=== PATIENT | male | born 1950 | race Asian ===

== ENCOUNTER 2018-09-05 08:18 | Emergency (ER) | payer OTHER ==
[~2018-09-05] VITALS: Ht 170.2 cm; Wt 65.8 kg
[2018-09-05 08:57] LABS: Basophils # (auto) 0.1 uL; Basophils % (auto) 0.5 % (0.0-2.0); Eosinophils # (auto) 0 uL; Eosinophils % (auto) 0.3 % (0.0-7.0); Hematocrit 50.3 % (41.0-53.0); Hemoglobin 16.7 g/dL (13.5-17.5); Lymphocytes # (auto) 1.8 uL; Lymphocytes % (auto) 19.3 % (10.0-50.0); Mean Corpuscular Hemoglobin 31.4 pg (28.0-32.0); Mean Corpuscular Hgb Conc. 33.1 g/dL (32.0-36.0); Mean Corpuscular Volume 94.7 fL (80.0-100.0); Monocytes # (auto) 0.4 uL; Monocytes % (auto) 4.6 % (0.0-12.0); Neutrophils # (auto) 7.1 uL; Neutrophils % (auto) 75.3 % (37.0-80.0); Nucleated Red Blood Cells % 0.1 %; Platelet Count (auto) 213 10^3/uL (140-450); Red Blood Cells 5.31 10^6/uL (4.5-5.90); Red Cell Distribution Width 13.1 % (11.8-14.3); White Blood Cell 9.5 10^3/uL (4.4-10.8)
[2018-09-05 09:13] LABS: Potassium 4.1 mmol/L (3.5-5.1)
[2018-09-05 09:23] LABS: BUN/Creatinine Ratio 9.9; Bilirubin, Total 0.4 mg/dL (0.2-1.0); Calcium 8.7 mg/dL (8.5-10.1); Total Protein 7.5 g/dL (6.4-8.2)
[2018-09-05 12:39] LABS: Urine Bacteria NONE SEEN /hpf (None Seen); Urine Blood Negative /uL (Negative); Urine Specific Gravity 1.004 (1.001-1.035); Urine WBC <1 /hpf (0 - 3)
[2018-09-05 22:32] VITALS: BP 133/66
== END 2018-09-06 02:44 | disposition home or self-care (01) ==
LOC: ER 08:21
DX: R07.89 Other chest pain (principal); G44.209 Tension-type headache, unspecified, not intractable; E11.65 Type 2 diabetes mellitus with hyperglycemia; I48.0 Paroxysmal atrial fibrillation; E78.5 Hyperlipidemia, unspecified; Z88.1 Allergy status to other antibiotic agents; Z88.8 Allergy status to other drugs, medicaments and biological substances
CPT/HCPCS: 36415; 70450; 71045; 80053; 81001; 84443; 84484; 85025; 85379; 93005

== ENCOUNTER 2018-12-28 07:45 | Day surgery (SDC) | payer OTHER ==
[~2018-12-28] VITALS: Ht 170.2 cm; Wt 67.1 kg
[~2018-12-28 07:45] MED LIST: APIX5TAB PO; CHOL100029 PO; GABA100C9 PO; INSUINJ37 SC; LISI10TA6 PO; METF-372 PO; METO-169 PO; OMEP20TA PO; SIMV-8 PO
[2018-12-28] MEDS ORDERED: IODIXANOL 320MG/ML 100ML BTL IV ONE ×3 (08:52→10:03)
[2018-12-28] MEDS ORDERED: fentaNYL CITRATE 100 MCG/2 ML VL ONE (09:40)
[2018-12-28] MEDS ORDERED: SODIUM CHL 0.9% 0 ML ONE (09:40)
[2018-12-28] MEDS ORDERED: ANGIOMAX 250 MG VIAL IV ONE (09:40)
[2018-12-28] MEDS ORDERED: MIDAZOLAM HCL 1MG/1ML-2 ML VIAL ONE (09:40)
[2018-12-28] MEDS ORDERED: VERAPAMIL 2.5MG/ML INJ 2ML VIAL IV ONE (10:10)
[2018-12-28] MEDS ORDERED: HEPARIN SODIUM (PORCINE) 5000 UNITS/ML 1ML VIAL ONE (10:24)
[2018-12-28] MEDS ORDERED: hydrALAZINE HCL 20 MG/ML VL IV ONE (11:15)
== END 2018-12-28 13:24 | disposition home or self-care (01) ==
LOC: EDUNIT# → CATH 07:45
PROVIDERS: ATTEND Internal Medicine
DX: I25.10 Atherosclerotic heart disease of native coronary artery without angina pectoris (principal); I10 Essential (primary) hypertension; I48.91 Unspecified atrial fibrillation; E11.9 Type 2 diabetes mellitus without complications; E78.5 Hyperlipidemia, unspecified; N40.0 Benign prostatic hyperplasia without lower urinary tract symptoms; Z87.891 Personal history of nicotine dependence; Z79.899 Other long term (current) drug therapy; Z88.8 Allergy status to other drugs, medicaments and biological substances; Z88.1 Allergy status to other antibiotic agents; Z79.84 Long term (current) use of oral hypoglycemic drugs
CPT/HCPCS: 93454; C1769; C1894; J0360; J1644; J2250; J3010; Q9967; 99152

== ENCOUNTER 2019-02-01 10:43 | Inpatient (IN) | payer OTHER ==
[~2019-02-01] VITALS: Ht 170.2 cm; Wt 63.0 kg
--- NOTE | 2019-02-01 13:14 | NUR ---
DIRECT ADMIT FROM DOCTOR FERN. ORDERS RECEIVED FROM DR. SHIRLEY, WILL PLACE AND CARRY OUT. PATIENT PLACED ON TELE BOX 56 RUNNING A-FIB IN THE 100'S. PATIENT DENIES CHEST PAIN, AT BEDSIDE. WILL CONTINUE TO MONITOR.
[2019-02-01] MEDS ORDERED: NITROGLYCERIN 0.4 MG SL TAB SL PRN (13:30)
[2019-02-01] MEDS ORDERED: MORPHINE SULF INJ 2 MG/ML SYRINGE 1ML IV PRN (13:30)
[2019-02-01] MEDS ORDERED: ACETAMINOPHEN 325 MG TAB PO PRN (13:30)
[2019-02-01] MEDS ORDERED: hydrALAZINE HCL 20 MG/ML VL IV PRN (13:30)
[2019-02-01] MEDS ORDERED: ONDANSETRON HCL 4 MG/2 ML VIAL IV PRN (13:30)
[2019-02-01] MEDS ORDERED: HYDROcodone-ACET 5/325MG TAB PO PRN (14:00)
--- NOTE | 2019-02-01 14:11 | NUR ---
IV insertion IV access obtained, via clean sterile technique by inserting 20 gauge catheter at left AC after 1 attempt. IV secured properly. No trauma to site. Patient tolerated well.
[2019-02-01] MEDS ORDERED: DEXTROSE (50%) 50ML SYRG IV PRN (15:15)
[2019-02-01 15:22] LABS: Basophils # (auto) 0.1 uL; Eosinophils # (auto) 0 uL; Eosinophils % (auto) 0.6 % (0.0-7.0); Hematocrit 47.8 % (41.0-53.0); Hemoglobin 15.9 g/dL (13.5-17.5); Lymphocytes # (auto) 1.3 uL; Lymphocytes % (auto) 24.9 % (10.0-50.0); Mean Corpuscular Hemoglobin 31.2 pg (28.0-32.0); Mean Corpuscular Hgb Conc. 33.3 g/dL (32.0-36.0); Mean Corpuscular Volume 93.6 fL (80.0-100.0); Monocytes # (auto) 0.5 uL; Monocytes % (auto) 8.5 % (0.0-12.0); Neutrophils # (auto) 3.5 uL; Platelet Count (auto) 198 10^3/uL (140-450); Red Blood Cells 5.11 10^6/uL (4.5-5.90); White Blood Cell 5.3 10^3/uL (4.4-10.8)
[2019-02-01 15:29] LABS: Albumin 4.1 g/dL (3.4-5.0); BUN/Creatinine Ratio 12.1; Calcium 9.2 mg/dL (8.5-10.1); Potassium 4.2 mmol/L (3.5-5.1)
[2019-02-01 15:34] LABS: Bilirubin, Total 0.5 mg/dL (0.2-1.0); INR 0.98 (0.9-1.15); Partial Thromboplastin Time 26.2 sec (23.64-32.05); Total Protein 7.8 g/dL (6.4-8.2)
[2019-02-01] MEDS ORDERED: SENN-46 PO (15:51)
[2019-02-01] MEDS ORDERED: CETI10TA80 PO (15:51)
[2019-02-01] MEDS: InsuLIN REG 1unit/0.01ml Soln (100units/ml) SC SCH ×2 (17:00→22:23)
[2019-02-01] MEDS: ACCU-CHEK COMFORT CURVE STRIP VI SCH ×2 (18:14→22:23)
--- NOTE | 2019-02-01 19:30 | NUR ---
Opening Shift Note Assumed care of patient, awake and alert. No S/S of distress/SOB or pain. Insructed on POC and to callfor assist PRN, will continue to monitor for changes Q1hr and PRN. Patient sitting in chair, call light within reach.
--- NOTE | 2019-02-01 20:30 | NUR ---
ICU TRANSFER Patient taken down to ICU room 108 in wheelchair and all personal belongings. No distress during transfer. Care endorsed to Raven AMAYA.
--- NOTE | 2019-02-01 20:30 | NUR ---
Pt being admitted to ICU FROM TELE FLOOR [place] [facility] admitted to ICU via Wheel Chair. on Tele monitor, on room air. Patient ambulated to bed, connected to ICU monitoring, [facility] Patient oriented to Raven Munoz, primary RN, unit, room, bed, and unit policies regarding patient care and visiting hours. All questions and concerns addressed, patient verbalized understanding. NOTE: PT TO UNIT. A&O X 4. DENIES PAIN. PT AMBULATED FROM WHEEL CHAIR TO BED WITH NO DIFFICULTY. BED IN LOWEST LOCKED POSITION. SIDE RAILS UP X 2. CALL DUARTE AND URINAL WITHIN REACH. PT EDUCATED TO CALL FOR ASSIST PRIOR TO GETTING OOB. PT VERBALIZES UNDERSTANDING.
[2019-02-01 20:31] VITALS: BP 138/83
[2019-02-01 21:00] VITALS: BP 124/78
--- NOTE | 2019-02-01 21:15 | NUR ---
CONSENTS PT STATES HE SPOKE WITH DR ORO AND DR FONSECA TODAY REGARDING CABG SCHEDULED FOR AM. PT OFFERED TO WATCH VIDEO EDUCATION REGARDING PLANNED PROCEDURE AND AT HOME CARE AFTER DISCHARGE. PT STATES "I HAVE SEEN THE VIDEOS". ALL CONSENTS SIGNED AND PLACED IN CHART.
[2019-02-01] MEDS ORDERED: ceFAZolin 1GM 2 GM in D5W 5% 100 ML IV ONE (21:30)
[2019-02-01] MEDS ORDERED: VANCOMYCIN 1GM/250ML 250 ML IV ONE (21:30)
--- NOTE | 2019-02-01 21:45 | NUR ---
PT CALLED UNIT PT CALLED UNIT WITH QUESTIONS REGARDING VISITING IN AM PRIOR TO SURGERY. AFTER PASSWORD FOR PHONE GIVEN. UPDATE PROVIDED. PT'S VERBALIZES UNDERSTANDING.
[2019-02-01] MEDS ORDERED: ASCORBIC ACID 500 MG TAB PO ONE (22:00)
[2019-02-01] MEDS ORDERED: ATORVASTATIN 20 MG TAB PO SCH (22:00)
[2019-02-01] MEDS ORDERED: MUPIROCIN 2% OINT 15gm or 22gm ONE (22:04)
[2019-02-01] MEDS: MUPIROCIN 2% OINT 15gm or 22gm TOP SCH (22:14)
[2019-02-01 23:44] VITALS: BP 137/88
[2019-02-02] VITALS (48 sets, daily range): BP systolic 30–160; BP diastolic 14–89
[2019-02-02] MEDS ORDERED: CHLORHEXIDINE 4% TOPICAL soln 118ml TOP ONE (02:00)
--- NOTE | 2019-02-02 02:00 | NUR ---
PRE OP PREP PT SHAVED. PT BATHED SELF WITH WARM SOAPY WATER. ASSISTED OOB TO CHAIR. PT THEN BATHED WITH HIBI-CLEANSE CHLORHEXIDINE SOLUTION. AIR DRY. PT PLACED IN CLEAN GOWN. NEW BEDDING PLACED IN BED. PT ASSISTED TO BED. CALL DUARTE IN REACH.
[2019-02-02 04:25] LABS: Basophils # (auto) 0 uL; Basophils % (auto) 0.6 % (0.0-2.0); Eosinophils # (auto) 0.1 uL; Eosinophils % (auto) 1.2 % (0.0-7.0); Lymphocytes # (auto) 1.4 uL; Lymphocytes % (auto) 24.4 % (10.0-50.0); Mean Corpuscular Hemoglobin 31.1 pg (28.0-32.0); Mean Corpuscular Hgb Conc. 33.3 g/dL (32.0-36.0); Mean Corpuscular Volume 93.5 fL (80.0-100.0); Monocytes # (auto) 0.7 uL; Monocytes % (auto) 11.6 % (0.0-12.0); Neutrophils # (auto) 3.5 uL; Neutrophils % (auto) 62.2 % (37.0-80.0); Nucleated Red Blood Cells % 0.1 %; Platelet Count (auto) 190 10^3/uL (140-450); Red Blood Cells 5.14 10^6/uL (4.5-5.90); Red Cell Distribution Width 12.9 % (11.8-14.3); White Blood Cell 5.7 10^3/uL (4.4-10.8)
[2019-02-02 04:38] LABS: INR 1.03 (0.9-1.15); Partial Thromboplastin Time 26.5 sec (23.64-32.05)
[2019-02-02 04:50] LABS: BUN/Creatinine Ratio 14.7; Calcium 8.8 mg/dL (8.5-10.1); Magnesium 2.1 mg/dL (1.6-2.6)
--- NOTE | 2019-02-02 05:30 | NUR ---
FAMILY TO BEDSIDE PT AND SON TO BEDSIDE TO VISIT PRIOR TO SURGERY THIS AM.
[2019-02-02] MEDS ORDERED: PAPAVERINE HCL 60 MG/2 ML 2ML VIAL ONE (06:07)
[2019-02-02] MEDS ORDERED: HEPARIN 1,000 UNITS/ml 1ML VIAL ONE (06:07)
[2019-02-02] MEDS ORDERED: NEOMYCIN-BACITRACIN-POLYM 15GM TOP OINT TOP ONE (06:07)
[2019-02-02] MEDS ORDERED: BACITRACIN INJ 50000 UNIT VIAL ONE ×3 (06:08→14:29)
[2019-02-02] MEDS: MUPIROCIN 2% OINT 15gm or 22gm TOP SCH (06:15)
[2019-02-02] MEDS ORDERED: NITROGLYCERIN 50MG/250ML 250 ML IV ONE (06:25)
--- NOTE | 2019-02-02 06:25 | NUR ---
PT OFF UNIT TO O.R. CHART AND CONSENTS SENT WITH PT.
[2019-02-02] MEDS: ACCU-CHEK COMFORT CURVE STRIP VI SCH ×10 (06:48→23:00)
[2019-02-02] MEDS: InsuLIN REG 1unit/0.01ml Soln (100units/ml) SC SCH ×2 (06:48→11:30)
[2019-02-02] MEDS ORDERED: CHLORHEXIDINE 0.12% ORAL rinse 473ML MT ONE (07:00)
[2019-02-02] MEDS ORDERED: MIDAZOLAM HCL 1MG/1ML-2 ML VIAL ONE ×2 (07:05→11:05)
[2019-02-02] MEDS ORDERED: ROCURONIUM 10MG/ML 10ML VIAL IV ONE (07:05)
[2019-02-02] MEDS ORDERED: PROPOFOL 10 MG/ML 20 ML IV ONE (07:05)
[2019-02-02] MEDS ORDERED: NOREPINEPHRINE 8 MG/250ML KIT 250 ML IV ONE (08:00)
[2019-02-02] MEDS ORDERED: HEPARIN 30000 UNITS in SODIUM CHLORIDE 0.9% 1000 ML IV ONE (08:00)
[2019-02-02] MEDS ORDERED: InsuLIN R (HUMAN) 100 UNITS in SODIUM CHL 0.9% 99 ML IV ONE (08:00)
[2019-02-02] MEDS ORDERED: ACCU-CHEK COMFORT CURVE STRIP VI ONE (08:00)
[2019-02-02] MEDS ORDERED: PHENYLEPHRINE INJ 20 MG in SODIUM CHL 0.9% 250 ML IV ONE (08:00)
[2019-02-02] MEDS ORDERED: AMINOCAPROIC ACID 10 GM in SODIUM CHL 0.9% 100 ML IV ONE (08:00)
[2019-02-02] MEDS ORDERED: EPINEPHrine HCL 4 MG in D5W 5% 250 ML IV ONE (08:00)
[2019-02-02] MEDS ORDERED: AMINOCAPROIC ACID 5 GM in SODIUM CHL 0.9% 250 ML IV ONE (08:00)
[2019-02-02] MEDS ORDERED: fentaNYL CITRATE 100 MCG/2 ML VL ONE ×3 (08:10→11:05)
[2019-02-02] MEDS ORDERED: MANNITOL 20 % (20GM/100ML) 500 ML IV ONE (08:13)
[2019-02-02] MEDS ORDERED: ALBUMIN 25% 400 ML IV ONE (08:13)
[2019-02-02] MEDS ORDERED: MANNITOL FTV 25% 12.5 GM/50 ML 100 ML IV ONE (08:13)
[2019-02-02] MEDS ORDERED: PLASMA-LYTE A pH7.4 6,000 ML INJ ONE (08:14)
[2019-02-02] MEDS ORDERED: DILTIAZEM 125mg/125ml BAG KIT 125 ML IV STA (08:15)
[2019-02-02] MEDS ORDERED: ASPirin 81 mg TAB PO SCH (10:00)
[2019-02-02] MEDS ORDERED: ADENOSINE 6 MG/2 ML INJ IV ONE ×2 (11:28→19:23)
[2019-02-02] MEDS ORDERED: PROPOFOL 100 ML IV ONE (13:00)
[2019-02-02] MEDS ORDERED: AMIODARONE HCL 150 MG in D5W 5% 100 ML IV ONE ×2 (13:45→15:30)
[2019-02-02] MEDS ORDERED: PROTAMINE SULFATE 10 MG/ML 5ML VIAL IV ONE ×2 (14:10)
[2019-02-02 14:30] LABS: Basophils # (auto) 0.1 uL; Basophils % (auto) 0.5 % (0.0-2.0); Eosinophils # (auto) 0 uL; Hematocrit 27.3 % (41.0-53.0); Hemoglobin 9.1 g/dL (13.5-17.5); Lymphocytes # (auto) 1.3 uL; Lymphocytes % (auto) 8.6 % (10.0-50.0); Mean Corpuscular Hemoglobin 31.2 pg (28.0-32.0); Mean Corpuscular Hgb Conc. 33.5 g/dL (32.0-36.0); Mean Corpuscular Volume 93.1 fL (80.0-100.0); Monocytes # (auto) 0.6 uL; Monocytes % (auto) 3.8 % (0.0-12.0); Neutrophils # (auto) 13.7 uL; Neutrophils % (auto) 87.1 % (37.0-80.0); Platelet Count (auto) 102 10^3/uL (140-450); Red Blood Cells 2.93 10^6/uL (4.5-5.90); Red Cell Distribution Width 12.8 % (11.8-14.3); White Blood Cell 15.8 10^3/uL (4.4-10.8)
[2019-02-02 14:47] LABS: INR 1.53 (0.9-1.15); Partial Thromboplastin Time 35.7 sec (23.64-32.05)
[2019-02-02] MEDS: PHENYLEPHRINE IV 250 ML IV SCH (15:13)
[2019-02-02] MEDS: INSULIN DRIP 100 UNIT/100ML 100 ML IV SCH ×2 (15:13→19:41)
[2019-02-02] MEDS: NITROGLYCERIN 50MG/250ML 250 ML IV SCH (15:13)
[2019-02-02] MEDS: PROPOFOL 100 ML IV SCH ×2 (15:13→20:10)
--- NOTE | 2019-02-02 15:13 | NUR ---
INITIAL ASSESSMENT Pt. arrived from [facility] accompanied by cardiothoracic team on hemodynamic monitoring. Report received from anesthesiologist and Dr. Church. Surgery: Cabg x 4. Endoscopic Vein [place] to right Leg. Lines: PA catheter around 52cm at the Hub of the Dual lumen Cordis to the right IJ. Gabriela to left radial artery. Pacer wires:V-wires connected to pacemaker. Pacemaker check performed, placed on standby. Chest Tube: mediastinal, left/right pleural Aaron: 16 F clear yellow harrison urine ET tube: 8.0, 24cm at lip line Gtts: Diprivan, Neosyneprhine, insulin, NS, Amiodarone Hemodynamics: CO/CI: 4.0/2.3 HR: 82 Assisted BP: 155/76 MAP: 102 CVP: 13 PAP: 40/22 SVR: 1763 SVO2: 72% SPO2:100 % Immediate Post- Op recovery Pt arrived to ICU hemodynamically stable/unstable. Patient connected to ventilator by RT. Ventilator connected to red outlet, ambu bag at bedside, alarms in place. Patient connected to bedside monitor, swan-stephanie connected and all lines zero'd and calibrate. Physical assessment performed. ABG and mix venous labs obtained and given to RT. MD at bedside.
[2019-02-02] MEDS: NICARDIPINE 25MG/250ML BAG KIT 250 ML IV SCH ×2 (15:22→20:22)
[2019-02-02] MEDS: NOREPINEPHRINE 8 MG/250ML KIT 250 ML IV SCH (15:22)
[2019-02-02] MEDS: MILRINONE 20MG/100ML 100 ML IV SCH ×2 (15:22→20:13)
[2019-02-02] MEDS ORDERED: MAGNESIUM SULFATE 1GM/100ML 100 ML IV PRN (15:30)
[2019-02-02] MEDS ORDERED: ZOLPIDEM TARTRATE 5 MG TAB PO PRN (15:30)
[2019-02-02] MEDS ORDERED: DEXTROSE (50%) 50ML SYRG IV PRN (15:30)
[2019-02-02] MEDS ORDERED: VANCOMYCIN 1GM/250ML 250 ML IV SCH (15:30)
[2019-02-02] MEDS ORDERED: NITROGLYCERIN 0.4 MG SL TAB SL PRN (15:30)
[2019-02-02] MEDS ORDERED: SODIUM BICARBONATE 8.4% INJ 50ML SYRINGE IV PRN (15:30)
[2019-02-02] MEDS: ALBUMIN 5% 250 ML IV SCH ×2 (15:30→20:20)
[2019-02-02] MEDS ORDERED: ceFAZolin 1GM 2 GM in D5W 5% 100 ML IV SCH (15:30)
[2019-02-02] MEDS ORDERED: MORPHINE SULF INJ 2 MG/ML SYRINGE 1ML IV PRN (15:30)
[2019-02-02] MEDS ORDERED: AMIODARONE HCL 900 MG in DEXTROSE 500 ML IV SCH ×2 (15:32→19:51)
--- NOTE | 2019-02-02 16:00 | NUR ---
LABS Labs drawn from arterial line and sent to lab.
[2019-02-02 16:10] LABS: Basophils # (auto) 0 uL; Basophils % (auto) 0.1 % (0.0-2.0); Eosinophils # (auto) 0 uL; Hematocrit 30.7 % (41.0-53.0); Hemoglobin 10.3 g/dL (13.5-17.5); Lymphocytes # (auto) 1.6 uL; Lymphocytes % (auto) 7.6 % (10.0-50.0); Mean Corpuscular Hemoglobin 31.3 pg (28.0-32.0); Mean Corpuscular Hgb Conc. 33.5 g/dL (32.0-36.0); Mean Corpuscular Volume 93.4 fL (80.0-100.0); Monocytes # (auto) 2.4 uL; Neutrophils # (auto) 17.7 uL; Neutrophils % (auto) 81.3 % (37.0-80.0); Nucleated Red Blood Cells % 0.1 %; Platelet Count (auto) 122 10^3/uL (140-450); Red Blood Cells 3.29 10^6/uL (4.5-5.90); Red Cell Distribution Width 12.9 % (11.8-14.3); White Blood Cell 21.8 10^3/uL (4.4-10.8)
--- NOTE | 2019-02-02 16:10 | NUR ---
CARES Partial linen change performed. Skin intact. Patient tolerated activity well. No distress or pain noted at this time. Will continue to monitor.
[2019-02-02 16:20] LABS: Albumin 4.1 g/dL (3.4-5.0); Calcium 8.5 mg/dL (8.5-10.1); Potassium 3.7 mmol/L (3.5-5.1)
--- NOTE | 2019-02-02 16:30 | NUR ---
FAMILY Patient at bedside. Updated on patient status. All questions and concerns addressed. stated she will be back tomorrow.
[2019-02-02 16:36] LABS: INR 1.21 (0.9-1.15); Partial Thromboplastin Time 28.4 sec (23.64-32.05)
[2019-02-02] MEDS: SODIUM CHLORIDE 0.9% 500 ML IV SCH (16:49)
--- NOTE | 2019-02-02 17:20 | NUR ---
COOLING MEASURES Patient core temperature 99.7, ice packs applied and room temperature decreased. Will continue to monitor.
--- NOTE | 2019-02-02 17:44 | NUR ---
AT BEDSIDE at bedside assessing patient. Orders received for Vitamin K.
[2019-02-02] MEDS ORDERED: PHYTONADIONE (VIT K)10 MG/ML 1ML VIAL IV ONE (17:45)
[2019-02-02] MEDS ORDERED: PHYTONADIONE (VIT K)10 MG/ML 1ML VIAL SUBCUT ONE (17:45)
[2019-02-02 17:48] LABS: Bilirubin, Total 1.2 mg/dL (0.2-1.0); Total Protein 5.9 g/dL (6.4-8.2)
[2019-02-02] MEDS: MORPHINE SULFATE 4 MG/ML SYR/VIAL IV PRN (18:01)
[2019-02-02] MEDS: POTASSIUM CHL 20MEQ/100ML 100 ML IV PRN (18:32)
--- NOTE | 2019-02-02 18:32 | NUR ---
ELECTROLYTE REPLACEMENT Patient Potassium 3.7, per protocol replacement required. Replacement started.
[2019-02-02] MEDS ORDERED: TRANEXAMIC ACID 1,000 mg/10ml INJ VIAL IV ONE (19:23)
[2019-02-02] MEDS ORDERED: POTASSIUM CHL 2MEQ/ML 20ML IV ONE (19:23)
[2019-02-02] MEDS ORDERED: PHENYLEPHRINE HCL 10 MG/ML VL IV ONE (19:23)
[2019-02-02] MEDS ORDERED: LIDOCAINE HCL 100 MG/5ML (2%) SYRG INJ IV ONE (19:23)
[2019-02-02] MEDS ORDERED: MAGNESIUM SULF 50% 40 MEQ/10 ML VL IV ONE (19:23)
[2019-02-02] MEDS ORDERED: CALCIUM GLUC 4.65 MEQ/10ML IV ONE (19:23)
[2019-02-02] MEDS ORDERED: SODIUM BICARBONATE 8.4 % INJ 50ML VIAL IV ONE (19:23)
[2019-02-02] MEDS ORDERED: CALCIUM CHL(10%) 100MG/ML 10ML VIAL IV ONE (19:23)
--- NOTE | 2019-02-02 19:27 | NUR ---
REPORT Report given to Raven AMAYA, care endorsed.
--- NOTE | 2019-02-02 20:00 | NUR ---
OPEN ASSUMED CARE OF MALE PT S/P CABG TODAY. PT ORALLY INTUBATED. SEDATED ON DIPRIVAN 35 MCG/KG/MIN. PT WITHDRAWS FROM PAIN. OTHERWISE NON RESPONSIVE. SR ON DENTURE MODEL MAKER WITH ST ELEVATION OBSERVED. PT ON TRIDIL GTT 20 MCG/MIN, AND AMIODARONE GTT AT 1 MG/MIN. R. IJ SWAN ANGELIQUE CATHETER IN PLACE APPROXIMATELY 52 CM AT THE HUB OF THE DUAL LUMEN CORDIS. L. RADIAL YOSVANY IN PLACE. GOOD WAVEFORMS OBSERVED. 20 IV TO L. AC WITH INSULIN GTT RUNNING. ALL DRESSINGS CDI. STERNOTOMY INCISION TO ANT. CHEST WITH CDI AQUACEL DRESSING. V EPICARDIAL WIRES IN PLACE CONNECTED TO EXTERNAL GENERATOR SET AT RATE OF 60. PT INTRINSIC RATE IS ABOVE PACEMAKER SET RATE. PACEMAKER SENSING PROPERLY. OGT IN PLACE CLAMPED. PLACEMENT VERIFIED. CHEST TUBES X 3. L&R PLEURAL, AND MEDIASTINAL CHEST TUBES DRAINING SANGUINEOUS DRAINAGE INTO ATRIUM COLLECTION UNITS X 2 SECURED TO FLOOR. BOTH SET AT 20 CM SUCTION. MEDIASTINAL CHEST TUBE WITH MILD GRADE 1 ARE LEAK. NO CREPITUS PALPATED. FIGUEREDO TO GRAVITY DRAINING PALE YELLOW URINE WITH PINK TINGE. NO DAVI BLEEDING AND NO CLOTS. ENDOSCOPIC INCISIONS TO R. MEDIAL KNEE AND R. LAT. ANKLE WITH CDI DRESSING. KESHAWN WRAP IN PLACE. BED IN LOWEST LOCKED POSITION. SIDE RAILS UP X 2. NO INDICATION OF PAIN OBSERVED. WILL CONTINUE TO CLOSELY MONITOR.
--- NOTE | 2019-02-02 20:10 | NUR ---
LOW C.I. PT WITH CONSISTENTLY LOW C.I. RANGING FROM 1.5 TO 1.7. CVP 8 BP 125/64. ALBUMIN 5% IS INFUSING PER ORDER. NTG 25 MCG/MIN. PAS/PAD 37/16 2014. NO INDICATIONS OF PAIN. PT RELAXED ON MECH VENT. MILRINONE GTT STARTED PER PROTOCOL.
[2019-02-02] MEDS: AMIODARONE HCL 900 MG in DEXTROSE 500 ML IV SCH (21:00)
[2019-02-02 21:10] LABS: Basophils # (auto) 0 uL; Basophils % (auto) 0.1 % (0.0-2.0); Eosinophils # (auto) 0 uL; Hematocrit 32.4 % (41.0-53.0); Lymphocytes # (auto) 0.4 uL; Lymphocytes % (auto) 2.6 % (10.0-50.0); Mean Corpuscular Hemoglobin 31.7 pg (28.0-32.0); Mean Corpuscular Volume 93.2 fL (80.0-100.0); Monocytes % (auto) 6.6 % (0.0-12.0); Neutrophils # (auto) 13.8 uL; Neutrophils % (auto) 90.7 % (37.0-80.0); Platelet Count (auto) 104 10^3/uL (140-450); Red Blood Cells 3.48 10^6/uL (4.5-5.90); Red Cell Distribution Width 13.3 % (11.8-14.3); White Blood Cell 15.2 10^3/uL (4.4-10.8)
[2019-02-02 21:27] LABS: BUN/Creatinine Ratio 7.6; Calcium 8.1 mg/dL (8.5-10.1); Magnesium 3.1 mg/dL (1.6-2.6); Potassium 4.2 mmol/L (3.5-5.1)
[2019-02-02 21:30] LABS: Phosphorus 0.3 mg/dL (2.5-4.90)
[2019-02-02 21:31] LABS: Phosphorus 0.3 mg/dL (2.5-4.90)
--- NOTE | 2019-02-02 21:34 | NUR ---
REASSESS C.I. C.I. NOW 2.1. MOST RECENT U.O. 130 FOR PAST HOUR. WILL CONTINUE TO MONITOR.
[2019-02-02] MEDS ORDERED: POTASSIUM PHOSPHATE 44 MEQ in D5W 5% 250 ML IV ONE (21:45)
[2019-02-02] MEDS: CHLORHEXIDINE 0.12% ORAL rinse 473ML MT SCH (22:00)
[2019-02-02] MEDS ORDERED: SODIUM PHOSPHATES 40 MEQ in D5W 5% 250 ML IV ONE (22:00)
--- NOTE | 2019-02-02 22:30 | NUR ---
PAIN PT GRIMACING. ASSUMED TO BE HAVING PAIN. PT MEDICATED WITH MORPHINE SIVP PER ORDER. SEE EMAR.
[2019-02-02] MEDS: SOD CHL 0.45% IV SCH (23:30)
[2019-02-03] VITALS (101 sets, daily range): BP systolic 25–164; BP diastolic 6–66
[2019-02-03] MEDS: SOD CHL 0.45% IV SCH ×14 (00:30→21:30)
[2019-02-03] MEDS: ACCU-CHEK COMFORT CURVE STRIP VI SCH ×17 (01:00→20:04)
[2019-02-03] MEDS: ALBUMIN 5% 250 ML IV SCH ×4 (01:13→16:30)
[2019-02-03] MEDS: NICARDIPINE 25MG/250ML BAG KIT 250 ML IV SCH ×5 (01:22→21:22)
[2019-02-03] MEDS: PROPOFOL 100 ML IV SCH (02:26)
[2019-02-03] MEDS: ceFAZolin 1GM 2 GM in D5W 5% 100 ML IV SCH ×3 (02:27→18:53)
--- NOTE | 2019-02-03 03:30 | NUR ---
HYGIENE PT BATH LINEN CHANGE DONE. PT BATHED WITH CHLORHEXIDINE WIPES. ENDOSCOPIC INCISIONS TO R. MEDIAL KNEE AND R. MEDIAL ANKLE CLEANSED WITH CHLORHEXIDINE SWABS. CHEST TUBE INSERTION SITES CLEANSED WITH CHLORHEXIDINE SWABS. PETROLEUM GAUZE PLACED AROUND INSERTION SITES. COVERED WITH STERILE 4X4'S AND SECURED WITH MEDIPORE TAPE. NOA HOSE PLACED TO R. LEG. KESHAWN WRAP TO L. LEG. PT TOLERATED WELL.
[2019-02-03 04:40] LABS: Basophils # (auto) 0 uL; Basophils % (auto) 0.1 % (0.0-2.0); Eosinophils # (auto) 0 uL; Hematocrit 29.7 % (41.0-53.0); Lymphocytes # (auto) 0.6 uL; Lymphocytes % (auto) 4.1 % (10.0-50.0); Mean Corpuscular Hemoglobin 31.5 pg (28.0-32.0); Mean Corpuscular Hgb Conc. 33.7 g/dL (32.0-36.0); Mean Corpuscular Volume 93.4 fL (80.0-100.0); Monocytes # (auto) 1.2 uL; Monocytes % (auto) 8.1 % (0.0-12.0); Neutrophils # (auto) 13.5 uL; Neutrophils % (auto) 87.7 % (37.0-80.0); Platelet Count (auto) 99 10^3/uL (140-450); Red Blood Cells 3.18 10^6/uL (4.5-5.90); Red Cell Distribution Width 13.2 % (11.8-14.3); White Blood Cell 15.4 10^3/uL (4.4-10.8)
[2019-02-03 05:02] LABS: BUN/Creatinine Ratio 7.3; Calcium 7.8 mg/dL (8.5-10.1); Magnesium 2.8 mg/dL (1.6-2.6); Phosphorus 2.8 mg/dL (2.5-4.90)
[2019-02-03] MEDS: VANCOMYCIN 1GM/250ML 250 ML IV SCH ×2 (05:12→16:57)
[2019-02-03] MEDS ORDERED: CALCIUM GLUC 4.65meq/50ml D5AE 50 ML IV ONE ×3 (05:30→12:30)
[2019-02-03] MEDS: POTASSIUM CHL 20MEQ/100ML 100 ML IV PRN ×4 (05:34→13:30)
--- NOTE | 2019-02-03 06:14 | NUR ---
DR FONSECA CALLED UNIT UPDATED MD REGARDING CURRENT GTT'S AND PT CONDITION THROUGH THE NIGHT. ORDERS RECEIVED TO START WEANING PARAMETERS.
--- NOTE | 2019-02-03 07:10 | NUR ---
OPENING NOTE REPORT RECEIVED FROM INTEGRATION SOFTWARE ENGINEER NURSE. PATIENT RESTING IN BED AT THIS TIME. RESPIRATIONS EVEN AND UNLABORED, INTUBATED AND LIGHTLY SEDATED. CHEST STERNAL INCISION CLEAN, DRY AND INTACT WITH AQUACEL DRESSING. RIGHT LEG HARVEST SITES COVERED WITH TELFA GAUZE WITH KESHAWN WRAP APPLIED, CLEAN DRY AND INTACT. FIGUEREDO TO GRAVITY DRAINING CLEAR YELLOW URINE. 3 CHEST TUBES TO SUCTION DRAINING SANGUINOUS FLUID, NO AIR LEAK NOTED. CHEST TUBE SITES COVERED WITH DRESSING CLEAN DRY AND INTACT WITH NO CREPITUS NOTED. V PACER WIRES CONNECTED TO PACEMAKER, SENSING CORRECTLY. PATIENT CURRENTLY IN A FIB WITH OWN INTRINSIC RATE. CORDIS TO RIGHT IJ WITH SWAN ANGELIQUE AT APPROXIMATELY 52CM. BED IN LOW POSITION. WILL CONTINUE TO MONITOR.
[2019-02-03] MEDS: MORPHINE SULFATE 4 MG/ML SYR/VIAL IV PRN ×3 (08:12→17:27)
--- NOTE | 2019-02-03 08:12 | NUR ---
PAIN PATIENT SHAKING HEAD THAT HE IS IN PAIN, NOTED FACIAL GRIMACING AND VITAL SIGN CHANGES. ADMINISTERED MEDICATION ORDERED.
--- NOTE | 2019-02-03 08:25 | NUR ---
CPAP PT PLACED ON CPAP PER MD ORDER. PT AWAKE AND FOLLOWING COMMANDS. RR: 21, SAT: 98%, HEMODYNAMICALLY STABLE. WILL CONTINUE TO MONITOR.
--- NOTE | 2019-02-03 08:43 | NUR ---
DR FONSECA UPDATED ON PATIENT STATUS AND HEMODYNAMICS. PER MD CALL WITH CPAP ABG RESULTS AND PARAMETERS. PER MD CONSULT DR OHARA FOR PULMONARY CONSULTS TO MANAGE PATIENT. PER MD DECREASE MILRINONE DRIP THIS AFTERNOON AROUND 1400, DECREASE BY 0.5ML/HR TOLERATED.
--- NOTE | 2019-02-03 09:35 | NUR ---
SPOKE TO DR FONSECA INFORMED OF PATIENTS ABG RESULTS FROM CPAP TRIAL. PER MD EXTUBATE PATIENT.
--- NOTE | 2019-02-03 09:37 | NUR ---
SPOKE TO DR OHARA NEW PULMONARY CONSULT PER DR FONSECA. REVIEWED ABG FROM CPAP TRIAL. PER MD EXTUBATE PATIENT AND PLACE ON COOL MIST MASK.
--- NOTE | 2019-02-03 09:41 | NUR ---
PATIENT EXTUBATED PER MD ORDER, PATIENT PLACED ON COOL MIST MASK 40%, SATURATIONS 97%. NO STRIDOR NOTED. WILL CONTINUE TO MONITOR.
--- NOTE | 2019-02-03 09:50 | NUR ---
DR ORO AT BEDSIDE TO ASSESS PATIENT AND DISCUSS PLAN OF CARE. PER MD ADMINISTER 5 MG HYDRALAZINE FOR ELEVATED BLOOD PRESSURE. ORDERS NOTED IN CHART.
[2019-02-03] MEDS ORDERED: hydrALAZINE HCL 20 MG/ML VL ONE (09:51)
[2019-02-03] MEDS ORDERED: hydrALAZINE HCL 20 MG/ML VL IV ONE (10:00)
[2019-02-03] MEDS ORDERED: PANTOPRAZOLE 40 MG/10 ML VIAL INJ IV SCH (10:00)
[2019-02-03] MEDS: CHLORHEXIDINE 0.12% ORAL rinse 473ML MT SCH ×2 (10:14→22:24)
--- NOTE | 2019-02-03 10:15 | NUR ---
AT BEDSIDE AND UPDATED ON PATIENT STATUS. ALL QUESTIONS AND CONCERNS ADDRESSED AT THIS TIME.
[2019-02-03] MEDS: NITROGLYCERIN 50MG/250ML 250 ML IV SCH (10:31)
--- NOTE | 2019-02-03 10:38 | NUR ---
A FIB PATIENT CONVERTED TO A FIB 100-110'S CONTROLLED. EKG PERFORMED WILL INFORM MD. PATIENT CURRENTLY ON AMIODARONE DRIP PER PROTOCOL.
[2019-02-03 10:42] LABS: Basophils # (auto) 0 uL; Basophils % (auto) 0.1 % (0.0-2.0); Eosinophils # (auto) 0 uL; Hematocrit 28.5 % (41.0-53.0); Hemoglobin 9.6 g/dL (13.5-17.5); Lymphocytes # (auto) 0.8 uL; Lymphocytes % (auto) 4.1 % (10.0-50.0); Mean Corpuscular Hemoglobin 31.6 pg (28.0-32.0); Mean Corpuscular Hgb Conc. 33.7 g/dL (32.0-36.0); Mean Corpuscular Volume 93.7 fL (80.0-100.0); Monocytes % (auto) 5.5 % (0.0-12.0); Neutrophils % (auto) 90.3 % (37.0-80.0); Platelet Count (auto) 97 10^3/uL (140-450); Red Blood Cells 3.04 10^6/uL (4.5-5.90); Red Cell Distribution Width 13.3 % (11.8-14.3); White Blood Cell 18.9 10^3/uL (4.4-10.8)
[2019-02-03 10:46] LABS: Albumin 3.9 g/dL (3.4-5.0); BUN/Creatinine Ratio 6.6; Calcium 8.1 mg/dL (8.5-10.1); Magnesium 2.7 mg/dL (1.6-2.6)
[2019-02-03 10:49] LABS: Bilirubin, Total 0.8 mg/dL (0.2-1.0); Phosphorus 3.5 mg/dL (2.5-4.90); Total Protein 5.9 g/dL (6.4-8.2)
--- NOTE | 2019-02-03 10:52 | NUR ---
SPOKE TO DR ORO ABOUT PATIENTS HEART RHYTHM IN A FIB. PER MD ADMINISTER DIGOXIN 0.5MG IVP X1 DOSE NOW AND THEN REPEAT IN 6 HOURS. PER MD IF PATIENTS HEART RATE SUSTAINS OVER 120' S ADMINISTER METOPROLOL 2.5MG IVP Q3HRS PRN TO MAINTAIN HR LESS THAN 120. ALL ORDERS NOTED IN CHART.
[2019-02-03] MEDS ORDERED: DIGOXIN (250MCG/ML) 2 ML AMPULE ONE (10:53)
[2019-02-03] MEDS ORDERED: DIGOXIN (250MCG/ML) 2 ML AMPULE IV ONE ×2 (11:00→17:00)
--- NOTE | 2019-02-03 11:01 | NUR ---
DR SHIRLEY AT BEDSIDE TO ASSESS PATIENT AND DISCUSS PLAN OF CARE. NO NEW ORDERS AT THIS TIME.
[2019-02-03] MEDS: AMIODARONE HCL 900 MG in DEXTROSE 500 ML IV SCH (11:14)
[2019-02-03 11:47] LABS: INR 1.1 (0.9-1.15)
--- NOTE | 2019-02-03 12:45 | NUR ---
PAIN PATIENT COMPLAINING OF PAIN 10/10 IN BACK AND CHEST. NOTED FACIAL GRIMACING AND VITAL SIGN CHANGES. REPOSITIONED PATIENT AND ADMINISTERED MEDICATION ORDERED.
[2019-02-03] MEDS: INSULIN DRIP 100 UNIT/100ML 100 ML IV SCH (13:25)
[2019-02-03] MEDS: IPRATROPIUM BROM 0.5 MG/2.5ML INH SOL NEB SCH ×2 (14:12→18:00)
--- NOTE | 2019-02-03 14:30 | NUR ---
SPOKE TO DR FONSECA TO INFORM OF PATIENTS MINIMAL URINE OUTPUT. PER MD ADMINISTER ALBUMIN AND ALSO LASIX PO40MG X 1 DOSE NOW. ALL ORDERS NOTED IN CHART.
--- NOTE | 2019-02-03 14:40 | NUR ---
SWALLOW EVALUATION ADMINISTERED ICE CHIPS TO PATIENT. PATIENT HAD DIFFICULTY SWALLOWING ICE CHIPS. WILL KEEP PATIENT NPO AT THIS TIME. [address] FONSECA TO INFORM THAT PATIENT IS NOT ABLE TO TAKE PO MEDICATIONS AT THIS TIME. PER MD ADMINISTER LASIX [id number] X1 DOSE NOW.
--- NOTE | 2019-02-03 14:43 | NUR ---
DR OHARA AT BEDSIDE TO ASSESS PATIENT AND DISCUSS PLAN OF CARE. NO NEW ORDERS AT THIS TIME.
[2019-02-03] MEDS ORDERED: FUROSEMIDE 20 MG TAB PO ONE (14:45)
[2019-02-03] MEDS ORDERED: FUROSEMIDE 20 MG/2 ML VIAL IV ONE (15:00)
[2019-02-03] MEDS: PHENYLEPHRINE IV 250 ML IV SCH (15:22)
[2019-02-03] MEDS: SODIUM CHLORIDE 0.9% 500 ML IV SCH (15:22)
[2019-02-03] MEDS: NOREPINEPHRINE 8 MG/250ML KIT 250 ML IV SCH (15:22)
[2019-02-03] MEDS: METOPROLOL TARTRATE 1MG/1ML-5ML VIAL IV PRN (15:46)
--- NOTE | 2019-02-03 17:20 | NUR ---
SPOKE TO DR FONSECA AND UPDATED ON PATIENT STATUS AND HEMODYNAMICS. PER MD ONCE MILRINONE DRIP DISCONTINUED PATRICIA MERINO.
--- NOTE | 2019-02-03 17:23 | NUR ---
SPOKE TO DR SHIRLEY ABOUT PATIENTS TEMP OF 100.4F, PER MD ADMINISTER TYLENOL IVPB X1 DOSE, MD ALSO MADE AWARE OF PATIENTS ACID REFLUX, PER MD INCREASE PROTONIX IVP TO BID. ALL ORDERS NOTED IN CHART.
[2019-02-03] MEDS ORDERED: ACETAMINOPHEN IV 1000 MG/100ML (10MG/ML) IV ONE (17:30)
[2019-02-03] MEDS ORDERED: ACETAMINOPHEN IV 100 ML IV ONE (17:53)
[2019-02-03 17:57] LABS: Basophils # (auto) 0 uL; Basophils % (auto) 0.2 % (0.0-2.0); Eosinophils # (auto) 0 uL; Hematocrit 28.8 % (41.0-53.0); Hemoglobin 9.8 g/dL (13.5-17.5); Lymphocytes # (auto) 0.8 uL; Lymphocytes % (auto) 4.1 % (10.0-50.0); Mean Corpuscular Hemoglobin 32.1 pg (28.0-32.0); Mean Corpuscular Volume 94.3 fL (80.0-100.0); Monocytes # (auto) 1.6 uL; Monocytes % (auto) 8.1 % (0.0-12.0); Neutrophils # (auto) 17.9 uL; Neutrophils % (auto) 87.6 % (37.0-80.0); Platelet Count (auto) 93 10^3/uL (140-450); Red Blood Cells 3.06 10^6/uL (4.5-5.90); Red Cell Distribution Width 13.3 % (11.8-14.3); White Blood Cell 20.4 10^3/uL (4.4-10.8)
[2019-02-03 18:14] LABS: BUN/Creatinine Ratio 7.7; Calcium 8.1 mg/dL (8.5-10.1); Magnesium 2.2 mg/dL (1.6-2.6); Phosphorus 3.4 mg/dL (2.5-4.90)
[2019-02-03] MEDS: MILRINONE 20MG/100ML 100 ML IV SCH (18:38)
--- NOTE | 2019-02-03 19:30 | NUR ---
OPEN NOTES Assumed care of patient. Patient had CABG x 4 yesterday. Extubated today. On BIPAP now for breathing treatment. Patient awake, alert and oriented. Complains of some headache - will try to sleep. ECG Atrial Fibrillation HR 70-90/min, BP 110-130 mmHg On IV Amiodarone at 0.5mg/min, IV NTG at 5mcg/min, IV Milrinone at 1ml/hr with orders to wean down by 0.5ml every hour until off. PA pressures 30-40/ 8-10, CVP 4-6 Chest tubes x 3 connected to Atrium drainage at -20cm suction, with sanguineous drainage. No air leak or crepitus noted. Dressing dry and intact. Sternotomy incision covered with Aquacel, right leg harvest sites with Telfa and covered with miles wraps IV Lines: [place] catheter at right IJ approximately 52cm at the hub-dressing dry and intact Left AC G20 patent and intact Left radial Arterial line - wave form good All invasive lines levelled and zeroed. will continue to monitor
[2019-02-03] MEDS ORDERED: DEXTROSE (50%) 50ML SYRG IV PRN (20:00)
[2019-02-03] MEDS: InsuLIN REG 1unit/0.01ml Soln (100units/ml) SC SCH (20:08)
--- NOTE | 2019-02-03 21:00 | NUR ---
MILRINONE WEANED OFF
--- NOTE | 2019-02-03 22:00 | NUR ---
PA CATHETER REMOVED ORDERED
[2019-02-03] MEDS: PANTOPRAZOLE 40 MG/10 ML VIAL INJ IV SCH (22:15)
[2019-02-03 22:16] LABS: Albumin 3.8 g/dL (3.4-5.0); BUN/Creatinine Ratio 7.4; Calcium 7.8 mg/dL (8.5-10.1); Magnesium 2.4 mg/dL (1.6-2.6); Potassium 4.4 mmol/L (3.5-5.1)
[2019-02-03 22:18] LABS: Bilirubin, Total 0.7 mg/dL (0.2-1.0); Total Protein 5.8 g/dL (6.4-8.2)
[2019-02-03] MEDS: CALCIUM GLUC 4.65meq/50ml D5AE 50 ML IV PRN (23:06)
[2019-02-04] VITALS (84 sets, daily range): BP systolic 89–222; BP diastolic 31–132
[2019-02-04] MEDS: ACCU-CHEK COMFORT CURVE STRIP VI SCH ×7 (00:07→23:52)
[2019-02-04] MEDS: InsuLIN REG 1unit/0.01ml Soln (100units/ml) SC SCH ×7 (00:10→23:57)
--- NOTE | 2019-02-04 00:51 | NUR ---
maurisio BAXTER for high BP
[2019-02-04] MEDS ORDERED: SOD CHL 0.45% 1,000 ML IV SCH (01:00)
--- NOTE | 2019-02-04 01:00 | NUR ---
BP ARTERIAL LINE BP 40-50 MMHG HIGHER THAN NIBP CUFF PRESSURE IV NITROGLYCERIN DRIP TITRATED WHILE WAITING FOR MD'S CALL BACK
--- NOTE | 2019-02-04 01:10 | NUR ---
SON CALLED Patient's son called. Correct password was given. Updated him of patient's condition. All questions answered. Verbalized understanding
[2019-02-04] MEDS: MORPHINE SULFATE 4 MG/ML SYR/VIAL IV PRN ×5 (01:23→22:34)
--- NOTE | 2019-02-04 01:23 | NUR ---
PAIN PATIENT IN PAIN 10/10 AFTER TURNING IV MORPHINE GIVEN WILL CONTINUE TO MONITOR
[2019-02-04] MEDS: ceFAZolin 1GM 2 GM in D5W 5% 100 ML IV SCH ×2 (01:38→10:21)
[2019-02-04] MEDS: IPRATROPIUM BROM 0.5 MG/2.5ML INH SOL NEB SCH ×6 (02:00→22:10)
--- NOTE | 2019-02-04 02:00 | NUR ---
RE-ASSESS Patient is resting now. BP 120-140 mmHg arterial line, NIBP 100-110 mmHg will continue to monitor
[2019-02-04] MEDS: NICARDIPINE 25MG/250ML BAG KIT 250 ML IV SCH ×5 (02:22→22:22)
[2019-02-04 03:57] LABS: Basophils # (auto) 0 uL; Basophils % (auto) 0.1 % (0.0-2.0); Eosinophils # (auto) 0 uL; Hematocrit 29.6 % (41.0-53.0); Hemoglobin 9.9 g/dL (13.5-17.5); Lymphocytes # (auto) 0.9 uL; Lymphocytes % (auto) 4.8 % (10.0-50.0); Mean Corpuscular Hemoglobin 31.7 pg (28.0-32.0); Mean Corpuscular Hgb Conc. 33.5 g/dL (32.0-36.0); Mean Corpuscular Volume 94.6 fL (80.0-100.0); Monocytes # (auto) 1.2 uL; Monocytes % (auto) 6.2 % (0.0-12.0); Neutrophils # (auto) 17.5 uL; Neutrophils % (auto) 88.9 % (37.0-80.0); Platelet Count (auto) 93 10^3/uL (140-450); Red Blood Cells 3.13 10^6/uL (4.5-5.90); Red Cell Distribution Width 13.5 % (11.8-14.3); White Blood Cell 19.7 10^3/uL (4.4-10.8)
[2019-02-04 04:17] LABS: BUN/Creatinine Ratio 8.5; Calcium 7.9 mg/dL (8.5-10.1); Potassium 4.6 mmol/L (3.5-5.1)
[2019-02-04 04:42] LABS: Magnesium 2.2 mg/dL (1.6-2.6)
[2019-02-04] MEDS: VANCOMYCIN 1GM/250ML 250 ML IV SCH (05:12)
--- NOTE | 2019-02-04 05:30 | NUR ---
HYGIENE PATIENT CLEANED WITH CHG WIPES.PARTIAL LINEN CHANGED DONE
--- NOTE | 2019-02-04 05:40 | NUR ---
INCISIONAL CARE CHEST TUBE DRESSING CHANGED- SITE CLEANED WITH CHG SWABS THEN COVERED WITH PETROLEUM GAUZE, STERILE GAUZE AND MEDIPORE TAPE HARVEST SITES CLEANED WITH CHG SWABS - KESHAWN WRAP REMOVED, NOA STOCKINGS APPLIED
--- NOTE | 2019-02-04 05:50 | NUR ---
OUT OF BED PATIENT ASSISTED OUT OF BED COMPLAINED OF PAIN - ENCOURAGED SLOW DEEP BREATHS WILL CONTINUE TO MONITOR Addendum: 02/04/19 at 0631 by Rain Khan RN PAIN MEDICATION WAS GIVEN PRIOR TO SITTING OUT OF BED
--- NOTE | 2019-02-04 06:00 | NUR ---
OUTPUT OF 0600HRS CHEST TUBES = 382 ML URINE = 445 ML
--- NOTE | 2019-02-04 06:25 | NUR ---
CALLED MD TALKED TO DR. FONSECA OVER THE PHONE,UPDATED HIM OF PATIENT'S BP INFORMED THAT LEFT RADIAL ART LINE HAS 40-60 MMHG DIFFERENCE FROM CUFF PRESSURES BP READS 160-170 MMHG ORDERED: 1. INFORM TURN SEWER, LET HIM MANAGE THE BP 2. START ON ASPIRIN, LASIX AND POTASSIUM ORAL - SEE EMAR FOR ORDERS
--- NOTE | 2019-02-04 06:30 | NUR ---
RIGHT ANKLE HARVEST SITE- NOTED TO HAVE SOME DRAINAGE/BLEEDING COVERED WITH TELFA DRESSING WILL CONTINUE TO MONITOR
--- NOTE | 2019-02-04 06:35 | NUR ---
paged cardio for high BP
--- NOTE | 2019-02-04 06:41 | NUR ---
RT NOTE: PT WAS PLACED ON BIPAP FOR BREATHING TX, AFTER 10 MINUTES PT STATED THAT HE CAN NOT TAKE IT ANYMORE AND WOULD LIKE THE MASK TO BE TAKEN OFF. RN AT BEDSIDE AND AWARE. WILL CONTINUE TO MONITOR PT.
--- NOTE | 2019-02-04 06:50 | NUR ---
PATIENT RESTING ON RECLINER NOW BREATHING COMFORTABLY
--- NOTE | 2019-02-04 07:00 | NUR ---
HIGH BP INDUSTRIAL TRUCK DRIVER HASN'T CALLED BACK.TITRATING NTG FOR BP TO KEEP >140 MMHG
--- NOTE | 2019-02-04 07:15 | NUR ---
OPENING NOTE REPORT RECEIVED FROM HELP DESK REP NURSE. PATIENT UP IN CARDIAC CHAIR AT THIS TIME. RESPIRATIONS EVEN AND UNLABORED, NO SIGNS OF ACUTE DISTRESS NOTED. CHEST STERNAL INCISION CLEAN, DRY AND INTACT WITH AQUACEL DRESSING. RIGHT LEG HARVEST SITES COVERED WITH TELFA GAUZE WITH NOA HOSE APPLIED TO BILATERAL LEGS, CLEAN DRY AND INTACT. FIGUEREDO TO GRAVITY DRAINING CLEAR YELLOW URINE. 3 CHEST TUBES TO SUCTION DRAINING SANGUINOUS FLUID, NO AIR LEAK NOTED. CHEST TUBE SITES COVERED WITH DRESSING CLEAN DRY AND INTACT WITH NO CREPITUS NOTED. V PACER WIRES CONNECTED TO PACEMAKER, SENSING CORRECTLY. PATIENT CURRENTLY IN A FIB WITH OWN INTRINSIC RATE. CORDIS TO RIGHT IJ. CALL LIGHT IN REACH, WILL CONTINUE TO MONITOR.
[2019-02-04] MEDS: MILRINONE 20MG/100ML 100 ML IV SCH ×2 (08:16→21:54)
[2019-02-04] MEDS: NITROGLYCERIN 50MG/250ML 250 ML IV SCH (08:46)
--- NOTE | 2019-02-04 08:56 | NUR ---
DR FONSECA AT BEDSIDE TO ASSESS PATIENT AND DISCUSS PLAN OF CARE. MD ASSESSED PATIENTS SWALLOWING ABILITY. PATIENT UNABLE TO SWALLOW WATER AT THIS TIME. PER MD NO PO MEDICATIONS AT THIS TIME. PER MD DISCONTINUE NITROGLYCERIN DRIP AND START PATCH, DISCONTINUE ARTERIAL LINE. ALL ORDERS NOTED IN CHART.
--- NOTE | 2019-02-04 09:05 | NUR ---
SPOKE TO DR ORO ABOUT PATIENT BLOOD PRESSURE AND HEART RATE. PER MD START PATIENT ON 2.5MG METOPROLOL IVP Q4H SCHEDULED, HYDRALAZINE 10MG IVP Q4HR PRN FOR SBP >160. PER MD CONTINUE AMIODARONE DRIP AT THIS TIME.
[2019-02-04] MEDS: SOD CHL 0.45% 1,000 ML IV SCH (09:15)
[2019-02-04] MEDS ORDERED: hydrALAZINE HCL 20 MG/ML VL IV PRN (09:15)
[2019-02-04] MEDS: CHLORHEXIDINE 0.12% ORAL rinse 473ML MT SCH ×2 (10:00→21:37)
[2019-02-04] MEDS: POTASSIUM CHL 20 Meq TABLET PO SCH ×2 (10:00→21:37)
[2019-02-04] MEDS: ASPirin-EC 81 mg tab PO SCH (10:00)
[2019-02-04] MEDS ORDERED: FUROSEMIDE 40 MG TAB PO SCH (10:00)
[2019-02-04] MEDS ORDERED: FUROSEMIDE 20 MG/2 ML VIAL ONE (10:01)
[2019-02-04] MEDS: METOPROLOL TARTRATE 1MG/1ML-5ML VIAL IV SCH ×4 (10:09→21:41)
[2019-02-04] MEDS: PANTOPRAZOLE 40 MG/10 ML VIAL INJ IV SCH ×2 (10:10→21:37)
[2019-02-04] MEDS: NITROGLYCERIN 0.4MG/HR TOPICAL PATCH TD SCH (10:20)
[2019-02-04] MEDS: FUROSEMIDE 20 MG/2 ML VIAL IV SCH ×2 (10:31→18:27)
--- NOTE | 2019-02-04 10:55 | NUR ---
DISCONTINUED ARTERIAL LINE DISCONTINUED ARTERIAL LINE TO LEFT RADIAL ARTERY. APPLIED PRESSURE FOR 5 MINUTES. NO NOTED BLEEDING APPLIED STERILE GAUZE AND PRESSURE TAPE. WILL CONTINUE TO MONITOR.
--- NOTE | 2019-02-04 12:00 | NUR ---
AMBULATION PATIENT AMBULATED 20 FEET OUTSIDE PATIENTS ROOM. PATIENT COMPLAINED OF DIZZINESS AND UNABLE TO STAND ON OWN. ASSISTED PATIENT BACK TO CARDIAC CHAIR. PATIENTS RR INCREASED TO 36, SATURATIONS 94% ON 2LITERS NASAL CANULA. PATIENT PLACED ON MASK OF 6 LITERS SATURATIONS DECREASED TO 90% AND PATIENT IS MOUTH BREATHING. SATURATIONS INCREASED TO 95%. [address] FONSECA FOR PAIN MEDICATIONS. AWAITING CALL BACK.
--- NOTE | 2019-02-04 12:31 | NUR ---
DR SHIRLEY AT BEDSIDE TO ASSESS PATIENT AND DISCUSS PLAN OF CARE. MD INFORMED OF PATIENTS PAIN LEVEL AND ANXIOUSNESS WHEN PAIN LEVEL IS INCREASED. PER MD ADMINISTER 1 TIME DOSE OF IV TYLENOL. ALL ORDERS NOTED IN CHART.
[2019-02-04] MEDS ORDERED: ACETAMINOPHEN IV 1000 MG/100ML (10MG/ML) IV ONE (12:45)
[2019-02-04 13:31] LABS: Albumin 3.8 g/dL (3.4-5.0); BUN/Creatinine Ratio 10.3; Calcium 7.6 mg/dL (8.5-10.1); Magnesium 2.1 mg/dL (1.6-2.6); Phosphorus 3.6 mg/dL (2.5-4.90); Potassium 4.3 mmol/L (3.5-5.1)
[2019-02-04 13:37] LABS: Bilirubin, Total 0.7 mg/dL (0.2-1.0); Total Protein 6.6 g/dL (6.4-8.2)
--- NOTE | 2019-02-04 14:25 | NUR ---
AMBULATION PATIENT AMBULATED 1 LAP AROUND NURSES STATION WITH NURSING STAFF AND PHYSICAL THERAPY CONNECTED TO PORTABLE MONITOR AND OXYGEN. PATIENT TOLERATED WELL. ASSISTED BACK TO CARDIAC CHAIR AND PLACED BACK ON BEDSIDE MONITOR. VITAL SIGNS STABLE.
[2019-02-04] MEDS: SODIUM CHLORIDE 0.9% 500 ML IV SCH (15:22)
[2019-02-04] MEDS: PHENYLEPHRINE IV 250 ML IV SCH (15:22)
[2019-02-04] MEDS: NOREPINEPHRINE 8 MG/250ML KIT 250 ML IV SCH (15:22)
--- NOTE | 2019-02-04 16:06 | NUR ---
SPOKE TO DR FONSECA AND UPDATED ON PATIENT STATUS. INFORMED THAT IV TYLENOL WORKED WELL FOR HIM FOR PAIN MANAGEMENT. PER MD ADMINISTER TYLENOL IVPB Q6HR SCHEDULED X 8 DOSES. ALL ORDERS NOTED IN CHART.
[2019-02-04] MEDS: CALCIUM GLUC 4.65meq/50ml D5AE 50 ML IV PRN (17:30)
--- NOTE | 2019-02-04 17:43 | NUR ---
PATIENT ASSISTED BACK TO BED. TOLERATED WELL. VS STABLE.
[2019-02-04] MEDS ORDERED: FUROSEMIDE 20 MG/2 ML VIAL IV SCH (18:00)
[2019-02-04] MEDS: ACETAMINOPHEN IV 1000 MG/100ML (10MG/ML) IV SCH ×2 (18:25→23:44)
[2019-02-04] MEDS: AMIODARONE HCL 900 MG in DEXTROSE 500 ML IV SCH (18:29)
--- NOTE | 2019-02-04 18:54 | NUR ---
LEFT MESSAGE FOR SWALLOW EVALUATION THERAPIST TO COME IN TOMORROW 02/05/[address] FONSECA.
--- NOTE | 2019-02-04 19:30 | NUR ---
CARE ASSUMED. ASSESSMENT - ALERT AND ORIENTED TO NAME. MOVES ALL EXTREMITIES. SPEECH CLEAR, SLEEPY AT THIS TIME. CARDIAC - RUB PRESENT, HR 80'S, A-FIB, SBP 110'S. LUNGS - COARSE LEFT GONZALEZ, CLEAR, RIGHT GONZALEZ. SATS 99%, 2L/NC. ABDOMEN - FLAT, SOFT, (+) B.S. LAST BM 02/01/19 G.U - FIGUEREDO TO DD, CLEAR, YELLOW URINE. 250CC POST LASIX THIS AFTERNOON. SKIN WARM AND DRY. MID STERNAL INCISION WITH AQUACELL AG INTACT. CHEST TUBES X3 WITH INTACT DRESSING. ENDOSCOPIC DRESSING TO LEG INTACT. IV - RIJ INTACT. LAX #20 INTACT. WILL CONTINUE TO MONITOR.
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
--- NOTE | 2019-02-04 23:45 | NUR ---
DISCUSSED DEEP BREATHING AND INCREASED AMBULATION WITH PATIENT, DISCUSSED PNEUMONIA COMPLICATIONS. DISCUSSED PAIN CONTROL, DEEP BREATHING.
[2019-02-05] VITALS (81 sets, daily range): BP systolic 109–162; BP diastolic 56–132
--- NOTE | 2019-02-05 00:10 | NUR ---
SON AT BED SIDE, QUESTIONS AND CONCERNS ADDRESSED. DISCUSSED PAIN CONTROL, INCREASED ACTIVITY
--- NOTE | 2019-02-05 00:45 | NUR ---
AMBULATED X1 AROUND UNIT. DENIES ANY CHEST PAIN BUT ADMITS TO BACK PAIN. SHALLOW BREATHING, SATS 94-97% ON 2L/NC DURING WALK. HR 90'S, ATRIAL FIB. DOES ADMIT TO BEING DIZZY UPON RETURNING TO ROOM. DECLINES ICE PACK TO BACK ONCE IN BED. NO INCREASE OUTPUT ON CHEST TUBES AFTER AMBULATION NOTED.
[2019-02-05] MEDS: NICARDIPINE 25MG/250ML BAG KIT 250 ML IV SCH ×5 (03:22→23:12)
[2019-02-05] MEDS: InsuLIN REG 1unit/0.01ml Soln (100units/ml) SC SCH ×6 (03:33→23:28)
[2019-02-05] MEDS: ACCU-CHEK COMFORT CURVE STRIP VI SCH ×6 (03:33→23:28)
[2019-02-05 04:29] LABS: Basophils # (auto) 0 uL; Basophils % (auto) 0.2 % (0.0-2.0); Eosinophils # (auto) 0 uL; Hematocrit 28.8 % (41.0-53.0); Hemoglobin 9.9 g/dL (13.5-17.5); Lymphocytes % (auto) 5.2 % (10.0-50.0); Mean Corpuscular Hemoglobin 32.3 pg (28.0-32.0); Mean Corpuscular Hgb Conc. 34.5 g/dL (32.0-36.0); Mean Corpuscular Volume 93.9 fL (80.0-100.0); Monocytes # (auto) 1.2 uL; Monocytes % (auto) 6.7 % (0.0-12.0); Neutrophils % (auto) 87.9 % (37.0-80.0); Platelet Count (auto) 96 10^3/uL (140-450); Red Blood Cells 3.07 10^6/uL (4.5-5.90); White Blood Cell 18.2 10^3/uL (4.4-10.8)
[2019-02-05 04:45] LABS: Calcium 7.9 mg/dL (8.5-10.1)
[2019-02-05 04:48] LABS: BUN/Creatinine Ratio 15.3
[2019-02-05] MEDS: METOPROLOL TARTRATE 1MG/1ML-5ML VIAL IV SCH ×4 (04:49→15:00)
[2019-02-05] MEDS: MORPHINE SULFATE 4 MG/ML SYR/VIAL IV PRN ×4 (04:57→21:56)
[2019-02-05] MEDS: FUROSEMIDE 20 MG/2 ML VIAL IV SCH (06:06)
[2019-02-05] MEDS: ACETAMINOPHEN IV 1000 MG/100ML (10MG/ML) IV SCH ×4 (06:06→23:28)
[2019-02-05] MEDS: IPRATROPIUM BROM 0.5 MG/2.5ML INH SOL NEB SCH ×4 (07:30→22:10)
--- NOTE | 2019-02-05 07:40 | NUR ---
OPENING SHIFT NOTE Report received from Shanthi AMAYA, care assumed. Patient observed sleeping in bed. No distress or pain noted at this time. Afebrile. Patient able to follow commands. Patient on 2 L nasal cannula, lungs clear anteriorly with oxygen saturation 99%. Three chest tubes patent and secure connected to 2 atrium. Aaron catheter present, patent, and hung below bladder. See open heart assessment. Bed locked in lowest position, alarms in place, and call light within reach. Patient instructed to call for assistance. Will continue to monitor.
--- NOTE | 2019-02-05 09:10 | NUR ---
TEDS/INCISIONAL CARE Endoscopic sites on right leg cleansed with Chlorhexidine swabs. Right ankle appears to have mild serous drainage, Telfa and Tegaderm applied. NOA hose placed on bilateral lower extremities, non-slip socks applied. Patient tolerated activity
[2019-02-05] MEDS: SOD CHL 0.45% 1,000 ML IV SCH (09:15)
--- NOTE | 2019-02-05 09:30 | NUR ---
ACTIVITY Patient ambulated one lap around nursing stations with walker, oxygen, and portable monitor. Patient accompanied by PT and RN. Patient tolerated activity fair. Patient had to stop and stand at each corner briefly. Patient now resting in chair. Vitals stable, no distress or c/o pain noted at this time. Call light placed within reach. Patient instructed to call for assistance.
--- NOTE | 2019-02-05 09:45 | NUR ---
FAMILY Patient called on phone for update. All questions and concerns addressed.
[2019-02-05] MEDS: ASPirin-EC 81 mg tab PO SCH (10:00)
[2019-02-05] MEDS: POTASSIUM CHL 20 Meq TABLET PO SCH ×2 (10:00→20:57)
[2019-02-05] MEDS: PANTOPRAZOLE 40 MG/10 ML VIAL INJ IV SCH ×2 (10:24→20:58)
[2019-02-05] MEDS: CHLORHEXIDINE 0.12% ORAL rinse 473ML MT SCH ×2 (10:25→20:58)
[2019-02-05] MEDS: NITROGLYCERIN 0.4MG/HR TOPICAL PATCH TD SCH (10:25)
--- NOTE | 2019-02-05 11:00 | NUR ---
MD UPDATE called for update. No new orders received. Still pending swallow eval.
[2019-02-05] MEDS: MILRINONE 20MG/100ML 100 ML IV SCH (11:14)
--- NOTE | 2019-02-05 11:38 | NUR ---
BIPAP Patient removed Bipap mask. Patient refusing to complete Bipap treatment at this time. Patient states it hurts too much and makes it hard to breath. Patient medicated with PRN morphine. Patient placed back on 2 L nasal cannula. Will continue to monitor.
--- NOTE | 2019-02-05 11:49 | NUR ---
Nutrition Assessment Notes please see attached link for complete assessment Est. Needs based on BW (66 kg): 0343-8263 kcal (25-30 kcal/kgBW), 66-79 gms pro (1.0-1.2 gms/kgBW). Will continue to monitor pertinent labs and reassess nutrient need prn Addendum: 02/05/19 at [address] Amended: Links added.
--- NOTE | 2019-02-05 12:20 | NUR ---
MD VISIT at bedside. Orders obtained for change amiodarone and metoprolol to P.O. once patient has passed swallow evaluation.
--- NOTE | 2019-02-05 12:30 | NUR ---
ICE CHIPS Oral care performed. Patient tolerating ice chips well, no signs of choking or difficulty swallowing at this time.
--- NOTE | 2019-02-05 14:00 | NUR ---
ACTIVITY Patient ambulated two lap around nursing stations with walker, oxygen, and portable monitor. Patient accompanied by RN. Patient tolerated activity fair. Patient now resting in chair. Vitals stable, no distress or c/o pain noted at this time. Call light placed within reach. Patient instructed to call for assistance.
[2019-02-05] MEDS: PHENYLEPHRINE IV 250 ML IV SCH (15:22)
[2019-02-05] MEDS: NITROGLYCERIN 50MG/250ML 250 ML IV SCH (15:22)
[2019-02-05] MEDS: NOREPINEPHRINE 8 MG/250ML KIT 250 ML IV SCH (15:22)
[2019-02-05] MEDS: SODIUM CHLORIDE 0.9% 500 ML IV SCH (15:22)
[2019-02-05] MEDS: CALCIUM GLUC 4.65meq/50ml D5AE 50 ML IV PRN (15:24)
--- NOTE | 2019-02-05 15:25 | NUR ---
SWALLOW EVAL Gena Speech therapist at bedside. Patient has passed swallow eval.
--- NOTE | 2019-02-05 15:41 | NUR ---
SWALLOW EVALUATED. PATIENT HAW OWN TEETH UPPER AND LOWER. ABLE TO FOLLOW DIRECTIONS. PATIENT ABLE TO TOLERATE PUREE TEXTURE AND MECHANICAL SOFT DIET TEXTURE WITH THIN LIQUIDS WITH NO OVERT SIGNS OR SYMPTOMS OF ASPIRATION. NURSING NOTIFIED.
--- NOTE | 2019-02-05 15:42 | NUR ---
PAIN/ANXIETY Patient complains of mild back pain, but states that the Bipap treatment makes the pain unbearable. Patient appears to have a lot of anxiety regarding Bipap treatment. Patient given Morphine prior to treatment, RN staying at bedside to assist with decreasing anxiety.
--- NOTE | 2019-02-05 16:20 | NUR ---
IS Patient educated on proper use of incentive spirometer. Patient performed exercise 10 times, best effort reaching 600 ml. Patient instructed to perform exercise each hour while awake. Patient verbalized understanding.
--- NOTE | 2019-02-05 17:32 | NUR ---
INCISIONAL CARE Aqua seal removed from mediastinal incision. Incision is intact, well approximated. There is a small area at very top of incision that appears to be pale. Incision cleansed with chlorhexidine swab. Medipore dressing applied. Chest tube insertion sites cleansed with chlorhexidine swabs. Petroleum gauze, 4x4 gauze applied, and secured with Medipore tape. Patient tolerated activity well. No distress noted.
--- NOTE | 2019-02-05 18:00 | NUR ---
ACTIVITY Patient ambulated two lap around nursing stations with walker, oxygen, and portable monitor. Patient accompanied by RN. Patient tolerated activity fair. Patient now resting in bed. Vitals stable, no distress or c/o pain noted at this time. Call light placed within reach. Patient instructed to call for assistance.
[2019-02-05] MEDS: FUROSEMIDE 40 MG TAB PO SCH (18:08)
--- NOTE | 2019-02-05 19:21 | NUR ---
REPORT Report given to Carolina AMAYA, care endorsed.
--- NOTE | 2019-02-05 19:30 | NUR ---
Initial Assessment Patient received laying on bed with eyes closed but awakens easily to verbal stimuli. Patient is alert and oriented x4 with no s/s of distress but does C/O pain. HOB elevated to 30 degrees. RR even and unlabored with equal rise and fall on 2L o2 via N/C. RIJ dual lumen cordis dressing CDI with no s/s of infiltration or phlebitis noted. Mid-sternal incision dressing CDI. Chest tubes x3 connected to Atrium collection chamber at [id number] with no s/s of clots, crepitus, or air leak. Draining serosanguineous fluid; dressings CDI. Ventricular epicardial wire connected to external pacemaker generator on standby. No currently pacing as intrinsic rate is 95 a-fib. Abd soft and non-tender. F/C intact and draining to gravity. NOA hose intact to BLE. Neurovascular status intact with palpable distal pulses x4 extremities, skin warm to touch, capillary refill brisk. Patient educated about how to use the call light and encouraged to call when needing any assistance or wanting to get OOB and patient verbalized understanding. Bed in lowest position, side rails up, bed brakes set, bed alarm set, patient reminded not to get OOB without RN present and he verbalized understanding. Call light and side table are within reach. All vitals stable. Continue close monitoring.
[2019-02-05] MEDS: HYDROcodone-ACET 10/325MG TAB PO PRN (19:32)
--- NOTE | 2019-02-05 20:30 | NUR ---
call Patient's called and gave correct password. RN updated her on status fo patient and POC and she verbalized understanding. No concerns or complaints voiced from her.
[2019-02-05] MEDS: DOCUSATE SOD 100 MG CAP PO SCH (20:57)
[2019-02-05] MEDS: METOPROLOL TARTRATE 25 MG TAB PO SCH (20:57)
[2019-02-05] MEDS: AMIODARONE HCL 900 MG in DEXTROSE 500 ML IV SCH (21:00)
--- NOTE | 2019-02-05 21:56 | NUR ---
Pain Management Patient C/O pain and is requesting medication. No drowsiness or respiratory depression noted. Morphine administered per MD order. Patient tolerated well with no s/s of aspiration noted.
[2019-02-06] VITALS (48 sets, daily range): BP systolic 94–152; BP diastolic 57–90
--- NOTE | 2019-02-06 | NUR ---
Incentive Spirometer Patient able to get 550ml of inspired air on best effort. RN to continue to encourage frequent use.
--- NOTE | 2019-02-06 01:00 | NUR ---
Son call Patient's Son called and gave correct password. RN updated him on status fo patient and POC and he verbalized understanding. No concerns or complaints voiced from him.
--- NOTE | 2019-02-06 02:30 | NUR ---
Ongoing Assessment No changes or incidents to report. patient resting in bed sleeping but awakens easily to verbal stimulation. no S/S of distress or pain at this time. Turning self independently. HOB elevated. Chest tubes remain to suction with no clots, crepitus, or air leak noted. Atrium collection chamber changed because it was almost full. No s/s of bleeding noted from incision sites. Neurovascular status remains intact with palpable distal pulses x4 extremities, skin warm to touch, and capillary refill brisk. All vitals stable. Continue close monitoring.
[2019-02-06] MEDS: ACCU-CHEK COMFORT CURVE STRIP VI SCH ×5 (03:27→20:22)
[2019-02-06] MEDS: InsuLIN REG 1unit/0.01ml Soln (100units/ml) SC SCH ×5 (03:27→20:22)
[2019-02-06] MEDS: NICARDIPINE 25MG/250ML BAG KIT 250 ML IV SCH ×4 (03:41→18:08)
[2019-02-06 04:35] LABS: Basophils # (auto) 0 uL; Basophils % (auto) 0.1 % (0.0-2.0); Eosinophils # (auto) 0 uL; Eosinophils % (auto) 0.1 % (0.0-7.0); Hematocrit 32.8 % (41.0-53.0); Lymphocytes # (auto) 0.8 uL; Lymphocytes % (auto) 5.5 % (10.0-50.0); Mean Corpuscular Hemoglobin 31.4 pg (28.0-32.0); Mean Corpuscular Hgb Conc. 33.6 g/dL (32.0-36.0); Mean Corpuscular Volume 93.5 fL (80.0-100.0); Monocytes # (auto) 1.4 uL; Monocytes % (auto) 9.3 % (0.0-12.0); Neutrophils # (auto) 12.6 uL; Platelet Count (auto) 139 10^3/uL (140-450); Red Blood Cells 3.51 10^6/uL (4.5-5.90); White Blood Cell 14.8 10^3/uL (4.4-10.8)
--- NOTE | 2019-02-06 05:00 | NUR ---
Incisional care Mid-sternal incision cleansed with CHG Swabstick and left open to air. Chest tube insertion sites cleansed with CHG Swabsticks and re-dressed with occlusive petroleum gauze, sterile gauze, and Medipore tape. Incisions all are well approximated with no s/s of infection or dehiscence noted. Patient tolerated well.
[2019-02-06 05:10] LABS: BUN/Creatinine Ratio 17.6; Calcium 7.9 mg/dL (8.5-10.1)
[2019-02-06] MEDS: FUROSEMIDE 40 MG TAB PO SCH ×2 (05:38→18:08)
[2019-02-06] MEDS: ACETAMINOPHEN IV 1000 MG/100ML (10MG/ML) IV SCH ×2 (05:39→12:55)
[2019-02-06] MEDS: IPRATROPIUM BROM 0.5 MG/2.5ML INH SOL NEB SCH ×6 (05:59→22:26)
--- NOTE | 2019-02-06 06:00 | NUR ---
Dr. Church call Informed of CXR results. He verbalized understanding. No interventions warranted at this time due to chest tube already in place and patient is asymptomatic.
--- NOTE | 2019-02-06 06:30 | NUR ---
Activity Patient ambulated to cardiac chair at bedside. Unable to ambulate further for patient safety because patient get very light headed/dizzy. Patient assisted into chair without incident. Dizziness subsided after sitting down.
--- NOTE | 2019-02-06 06:50 | NUR ---
Dr. Church called back Order received to split the right and left pleural chest tubes to separate Atrium collection chambers and put the right pleural chest tube to maximum suction and repeat CXR at 12pm. No additional orders received.
--- NOTE | 2019-02-06 07:00 | NUR ---
Report given No changes or incidents to report. No S/s of distress or pain, all vitals stable. Care endorsed to day shift RN. Endorsed splitting the R/L chest tubes to day shift RN.
[2019-02-06] MEDS: SOD CHL 0.45% 1,000 ML IV SCH (07:20)
[2019-02-06] MEDS: HYDROcodone-ACET 10/325MG TAB PO PRN ×2 (07:51→21:29)
--- NOTE | 2019-02-06 08:40 | NUR ---
CHEST TUBES CARRIED OUT MD ORDERS TO SPLIT L/R PLEURAL CHEST TUBES TO SEPARATE ATRIUM CHAMBERS. PLACED RIGHT CHEST TUBE TO MAXIMUM SUCTION, WHICH IS -40 CM OF H2O SUCTION. PATIENT TOLERATED WELL. WILL CONTINUE TO MONITOR OUTPUTS.
--- NOTE | 2019-02-06 09:20 | NUR ---
BACK TO BED AT THIS TIME. PATIENT WANTING TO TAKE A NAP AT THIS TIME. PATIENT EDUCATED ON IMPORTANCE OF STAYING IN CARDIAC CHAIR BUT PATIENT STATES HE IS REALLY TIRED AT THIS TIME. HELP PATIENT UP WITH MODERATE ASSISTANCE. NO DIZZY AT THIS TIME. CONTINUE CARE.
--- NOTE | 2019-02-06 09:45 | NUR ---
DR. SHIRLEY AT BEDSIDE: ORDERS MD UPDATED ON PT'S STATUS,LABS, CXR AND POC AT THIS TIME. WILL CARRY OUT ANY ORDERS GIVEN. CONTINUE CARE.
[2019-02-06] MEDS: CHLORHEXIDINE 0.12% ORAL rinse 473ML MT SCH ×2 (10:16→22:09)
[2019-02-06] MEDS: DOCUSATE SOD 100 MG CAP PO SCH ×2 (10:31→22:08)
[2019-02-06] MEDS: AMIODARONE HCL 200 MG TAB PO SCH (10:31)
[2019-02-06] MEDS: PANTOPRAZOLE 40 MG/10 ML VIAL INJ IV SCH ×2 (10:31→22:09)
[2019-02-06] MEDS: ASPirin-EC 81 mg tab PO SCH (10:31)
[2019-02-06] MEDS: NITROGLYCERIN 0.4MG/HR TOPICAL PATCH TD SCH (10:32)
[2019-02-06] MEDS: POTASSIUM CHL 20 Meq TABLET PO SCH ×2 (10:32→22:09)
[2019-02-06] MEDS: METOPROLOL TARTRATE 25 MG TAB PO SCH ×2 (10:32→22:09)
--- NOTE | 2019-02-06 10:55 | NUR ---
PT MONIQUE Norton deferred morning PT/ambulation, patient just got back in bed due to fatigue. Requested to comeback at 1PM. Addendum: 02/06/19 at 1057 by DERICK CORDERO PTT Amended: Links added.
--- NOTE | 2019-02-06 12:35 | NUR ---
PT Patient asleep during afternoon PT visit. RN stated that patient had rough night and will just let him rest for now.
[2019-02-06] MEDS: SODIUM CHLORIDE 0.9% 500 ML IV SCH (12:56)
[2019-02-06] MEDS: NOREPINEPHRINE 8 MG/250ML KIT 250 ML IV SCH (12:56)
--- NOTE | 2019-02-06 13:58 | NUR ---
CALLED DR. FONSECA: UPDATE TALKED WITH DR. FONSECA. UPDATED HIM ON SLIGHT IMPROVEMENT OF R SIDE PNEUMOTHORAX. MD WANTS TO CONTIUE WITH MAX SUCTION ON ATRIUM CHEST TUBE, RIGHT PLEURAL SIDE ONLY. CONTINUE CARE.
--- NOTE | 2019-02-06 14:00 | NUR ---
AMIODARONE GTT DC'D: PER MD ORDER PATIENT GIVEN PO AMIODARONE 200 MG THIS AM PER MD ORDERS. DR. SHIRLEY WANTING TO DC AMIO GTT AT 1400 TODAY. CURRENT HR STILL REMAINS A FIB. RATE OF 82 AT THIS TIME. WILL CONTINUE TO MONITOR.
--- NOTE | 2019-02-06 14:10 | NUR ---
AMBULATION WITH HELP FROM Odin NELSON, PATIENT GIVEN WALKER AND PLACED ON O2 AT 2L VIA NC AND TELE MONITOR AT THIS TIME. PATIENT ABLE TO WALK WITH ASSISTANCE X2 LAPS AROUND NURSING STATION. PATIENT TOLERATED WELL WITH FEW BREAKS. PATIENT THEN PLACED IN CARDIAC CHAIR AT BEDSIDE. CURRENT HR 88. SATS 100% ON O2 AT 2L VIA NC. WILL CONTINUE TO MONITOR.
[2019-02-06] MEDS: NITROGLYCERIN 50MG/250ML 250 ML IV SCH (14:37)
[2019-02-06] MEDS: PHENYLEPHRINE IV 250 ML IV SCH (14:37)
[2019-02-06] MEDS: MORPHINE SULFATE 4 MG/ML SYR/VIAL IV PRN (18:00)
--- NOTE | 2019-02-06 18:00 | NUR ---
AMBULATION PATIENT ASSISTED WITH AMBULATION AT THIS TIME. PATIENT GIVEN WALKER, PLACED ON TELE MONITOR AND O2 AT 2L VIA NC. PATIENT ABLE TO WALK X2 LAPS AROUND NURSING STATION. PATIENT PLACED BACK IN BED AT THIS TIME PER PATIENT REQUEST. PATIENT ALSO MEDICATED FOR PAIN AFTER WALKING, SEE EMAR FOR MED GIVEN. CONTINUE CARE.
--- NOTE | 2019-02-06 18:13 | NUR ---
CHEST TUBE OUTPUT STATUS. RIGHT CHEST TUBE OUTPUT : 75ML LEFT CHEST TUBE OUTPUT : 35 ML MEDIAL CHEST TUBE OUTPUT: 20 ML
--- NOTE | 2019-02-06 19:00 | NUR ---
OPENING NOTE ASSUMED CARE OF PATIENT AT THIS TIME. REPORT RECEIVED FROM DAY SHIFT RN. POC REVIEWED. HEAD TO TOE ASSESSMENT COMPLETE, SEE INTERVENTION SPREADSHEET FOR COMPLETE DETAILS. RECEIVED PT ALERT AND ORIENTED X4. RECEIVED PT ON 2 LTS NC. VSS. RECEIVED PT WITH 3 CHEST TUBES, LEFT AND MEDIAL TO 20 CM OF SUCTION, RIGHT CT TO 40 CM OF SUCTION. SX SITES CDI. FIGUEREDO CATHETER DRAINING TO GRAVITY. BED LOCKED AND IN LOWEST POSITION, SAFETY PRECAUTIONS IN PLACE. CALL LIGHT WITHIN REACH. WILL MONITOR PT CAREFULLY.
[2019-02-06] MEDS: AMIODARONE HCL 900 MG in DEXTROSE 500 ML IV SCH (21:32)
--- NOTE | 2019-02-06 22:18 | NUR ---
a-fib rvr Pt has several second runs of a-fin with rvr at rate of 157. Self resolving. At this time will not ambulate patient. Will reassess in the am for ambulation. Pt encouraged to use IS. Max output 700mls on IS. Pt tolerated well.
[2019-02-07] VITALS (42 sets, daily range): BP systolic 95–134; BP diastolic 36–89
[2019-02-07] MEDS: NICARDIPINE 25MG/250ML BAG KIT 250 ML IV SCH ×5 (00:22→20:22)
--- NOTE | 2019-02-07 03:33 | NUR ---
leslie hose placed on lower extremities bilaterally. Pt tolerated well.
[2019-02-07] MEDS: InsuLIN REG 1unit/0.01ml Soln (100units/ml) SC SCH ×6 (04:00→20:00)
[2019-02-07] MEDS: ACCU-CHEK COMFORT CURVE STRIP VI SCH ×6 (04:00→20:00)
[2019-02-07 04:10] LABS: Basophils # (auto) 0 uL; Basophils % (auto) 0.3 % (0.0-2.0); Eosinophils # (auto) 0.1 uL; Eosinophils % (auto) 0.4 % (0.0-7.0); Hematocrit 33.3 % (41.0-53.0); Hemoglobin 11.4 g/dL (13.5-17.5); Lymphocytes % (auto) 7.8 % (10.0-50.0); Mean Corpuscular Hgb Conc. 34.2 g/dL (32.0-36.0); Mean Corpuscular Volume 93.7 fL (80.0-100.0); Monocytes # (auto) 1.4 uL; Monocytes % (auto) 11.2 % (0.0-12.0); Neutrophils % (auto) 80.3 % (37.0-80.0); Nucleated Red Blood Cells % 0.1 %; Platelet Count (auto) 180 10^3/uL (140-450); Red Blood Cells 3.56 10^6/uL (4.5-5.90); Red Cell Distribution Width 12.9 % (11.8-14.3); White Blood Cell 12.4 10^3/uL (4.4-10.8)
[2019-02-07 04:29] LABS: Albumin 3.1 g/dL (3.4-5.0); BUN/Creatinine Ratio 17.4; Calcium 7.6 mg/dL (8.5-10.1); Potassium 3.9 mmol/L (3.5-5.1)
[2019-02-07 04:37] LABS: Bilirubin, Total 0.9 mg/dL (0.2-1.0); Total Protein 6.3 g/dL (6.4-8.2)
[2019-02-07] MEDS: FUROSEMIDE 40 MG TAB PO SCH ×2 (06:03→18:00)
--- NOTE | 2019-02-07 06:05 | NUR ---
CONFUSION PT HAVING EPISODE OF CONFUSION STATES, "THERE IS SOMEONE KNOCKING AT MY WINDOW." PT REORIENTED AND REASSURED THAT THERE IS NO ONE AT THE WINDOW. PT VERBALIZES UNDERSTANDING.
--- NOTE | 2019-02-07 06:18 | NUR ---
PT OOB TO SIT ON COMMODE AT THIS TIME.
--- NOTE | 2019-02-07 06:42 | NUR ---
CHEST TUBE OUTPUT RT TUBE +50 MLS, LFT+45, MED+30.
--- NOTE | 2019-02-07 06:43 | NUR ---
PT NOT STEADY TO AMBULATE AROUND UNIT WITHOUT PT. PT ASSISTED BACK TO BED AT THIS TIME.
[2019-02-07] MEDS: IPRATROPIUM BROM 0.5 MG/2.5ML INH SOL NEB SCH ×5 (06:55→22:01)
--- NOTE | 2019-02-07 07:45 | NUR ---
OPENING SHIFT NOTE Report received from Sam AMAYA, care assumed. Patient observed resting in bed. No distress or pain noted at this time. Afebrile. Patient alert and oriented, able to follow commands, and moves all extremities equally. Pulses palpable bilaterally. Denies chest pain. Patient on 2 L nasal cannula, lungs clear anteriorly with oxygen saturation 99%. Three chest tubes patent and secure connected to individual atrium. Aaron catheter present, patent, and hung below bladder. See open heart assessment for drainage and incisions. Bed locked in lowest position, alarms in place, and call light within reach. Patient instructed to call for assistance. Will continue to monitor.
--- NOTE | 2019-02-07 08:20 | NUR ---
VISITOR Patient Verito at bedside. Family member updated on plan of care.
--- NOTE | 2019-02-07 08:35 | NUR ---
ACTIVITY Patient ambulated two lap around nursing stations with walker, oxygen, and portable monitor. Patient accompanied by RN and patients . Patient tolerated activity fair. Heart rate ranging 100-120's atrial fibrillation. Patient denies distress or pain. Patient encouraged to breath slowly. Patient now resting chair. Vitals stable, call light placed within reach. Patient instructed to call for assistance.
[2019-02-07] MEDS: SOD CHL 0.45% 1,000 ML IV SCH (09:15)
--- NOTE | 2019-02-07 09:47 | NUR ---
MD UPDATE called for update on patient. MD aware of 24 hour chest tube output. MD wishes to remove two chest tubes today when he rounds. MD would like to start patient on blood thinner. Paging for orders.
--- NOTE | 2019-02-07 10:43 | NUR ---
CHEST TUBES at bedside to D/C left pleural and mediastinal chest tubes. Epicardial pacer wires removed. CXR ordered. Patient now placed on EZ pap.
[2019-02-07] MEDS: DOCUSATE SOD 100 MG CAP PO SCH ×2 (10:47→21:51)
[2019-02-07] MEDS: CHLORHEXIDINE 0.12% ORAL rinse 473ML MT SCH ×2 (10:47→21:52)
[2019-02-07] MEDS: PANTOPRAZOLE 40 MG/10 ML VIAL INJ IV SCH ×2 (10:47→21:51)
[2019-02-07] MEDS: NITROGLYCERIN 0.4MG/HR TOPICAL PATCH TD SCH (10:48)
[2019-02-07] MEDS: POTASSIUM CHL 20 Meq TABLET PO SCH ×2 (10:48→21:51)
[2019-02-07] MEDS: ASPirin-EC 81 mg tab PO SCH (10:48)
[2019-02-07] MEDS: METOPROLOL TARTRATE 25 MG TAB PO SCH ×2 (10:48→21:51)
[2019-02-07] MEDS: AMIODARONE HCL 200 MG TAB PO SCH (10:48)
--- NOTE | 2019-02-07 11:00 | NUR ---
MD RETURNED PAGE aware of reasons for page. MD wants to start patient on Eliquis the day after the last chest tube is removed. MD aware of continued Atrial fibrillation with rate reaching 120-130's at time. MD did not want to change medication orders at this time.
--- NOTE | 2019-02-07 14:24 | NUR ---
Nutrition Follow-up Notes Wt.: 62.9 kg today. Pt's sitting up on bedside chair, family member at bedside, on oxygen via nasal cannula, denies any discomfort except for chest incision pain (4/10), during rounds this morning. Pt states that he usually weighs around 145 lbs, denies any significant weight change few months check clerk. Pt's diabetic, takes oral DM meds, with insulin shots 2x daily, usually has fair appetite, tries to eat meals regularly, NKFA and not into any special diets check clerk. Pt's currently on Mechanical Soft Consistent Standard Carb: 60 gms/meal diet with fair PO intake aeb 40% ave. consumed meals (x5) in last 2.5 days d/t pt refused, per nursing. Encouraged to increase food intake through small frequent meals as tolerated. Provide verbal and written nutrition educ. re: current therapeutic diet as well as FDI for Lasix and they verbalized understanding. Est. Needs based on BW (66 kg): 4794-9375 kcal (25-30 kcal/kgBW), 66-79 gms pro (1.0-1.2 gms/kgBW). Will continue to monitor pertinent labs and reassess nutrient need prn Labs: Gluc 163 H, Ca 7.6 L, AST 39 H, Tpro 6.3 L, Alb 3.1 L; HbA1c 7.5 H Skin: Joel scale 19, mod risk, pt's medial chest incision dry and intact per quality improvement specialist. GI: Pt's no bowel activity since 02/01/19 per quality improvement specialist. PES: Increased nutrient needs r/t acute/chronic medical condition aeb 94% IBW, BMI 21.17 kg/m2, decreased muscle mass, s/p surgery, mild hypoalbuminemia, <75% consumed meals Altered nutrition related lab values r/t current/chronic medical condition aeb hyperglycemia, elev A1C hypocalcemia Will continue to monitor PO intake, skin status, pertinent labs and weight trend. F/u in 3 to 5 days. Rec.: 1.) Consider Mechanical Soft Consistent Standard Carb: 60 gms/meal, Cardiac: 2 gms Na, Low Chol, Low Fat diet with Glucerna Shakes 1 carton TID. 2.) Continue close supervision during meals. 3.) If Albumin continues trending down, consider Prostat 1 pkt BID. 4.) Refer pt to CDE/RD for further nutrition education and weight monitoring upon discharge. 5.) Continue current plan of care.
[2019-02-07] MEDS: SODIUM CHLORIDE 0.9% 500 ML IV SCH (14:38)
[2019-02-07] MEDS: PHENYLEPHRINE IV 250 ML IV SCH (14:38)
[2019-02-07] MEDS: NOREPINEPHRINE 8 MG/250ML KIT 250 ML IV SCH (14:38)
[2019-02-07] MEDS: NITROGLYCERIN 50MG/250ML 250 ML IV SCH (14:38)
--- NOTE | 2019-02-07 15:22 | NUR ---
ACTIVITY Patient ambulated four laps around nursing stations with walker, oxygen, and portable monitor. Patient accompanied by PT. Patient tolerated activity fair. Patient denies distress or pain. Patient encouraged to breath slowly. Patient now resting chair. Vitals stable, call light placed within reach. Patient instructed to call for assistance.
--- NOTE | 2019-02-07 15:27 | NUR ---
ELIMINATION Patient ambulated to toilet with walker and portable oxygen. Patient attempted to have bowel movement. Patient able to pass gas. Vibha care performed, patient ambulated back to chair without event. Resting with call light within reach. Vitals stable, no distress noted, will continue to monitor.
--- NOTE | 2019-02-07 16:00 | NUR ---
RIGHT IJ CORDIS D/C. Manual pressure held, dressing applied. No signs of bleeding noted.
--- NOTE | 2019-02-07 16:16 | NUR ---
Quesada catheter dc'd Order to discontinue quesada catheter. Quesada dc'd with clean technique following deflation of balloon. Patient tolerated well with no complaints of pain. Continue care.
--- NOTE | 2019-02-07 16:20 | NUR ---
IS Patient educated on proper use of incentive spirometer. Patient performed exercise 10 times, best effort reaching 1000 ml. Patient instructed to perform exercise each hour while awake. Patient verbalized understanding.
[2019-02-07 16:40] LABS: Hepatitis B Surface Antibody Positive
[2019-02-07 17:05] LABS: Hepatitis B Surface Antigen Negative (Negative)
[2019-02-07 17:11] LABS: Hepatitis A Total Antibody Positive
[2019-02-07 17:29] LABS: Hepatitis C Antibody Negative (Negative)
--- NOTE | 2019-02-07 17:55 | NUR ---
AMBULATION Patient instructed not to get up without assistance. Patient was found ambulating to bed without assistance. Patient was sitting on bed. Patient re-educated on risk for fall or injury. Patient verbalized understanding. Patient repositioned in bed with bed alarm in place. Bed locked in lowest position with call light within reach.
[2019-02-07 18:19] LABS: Hepatitis B Core Total AB Positive
--- NOTE | 2019-02-07 19:00 | NUR ---
OPENING NOTE ASSUMED CARE OF PATIENT AT THIS TIME. REPORT RECEIVED FROM DAY SHIFT RN. POC REVIEWED. HEAD TO TOE ASSESSMENT COMPLETE, SEE INTERVENTION SPREADSHEET FOR COMPLETE DETAILS. RECEIVED PT ALERT AND ORIENTED X4 with bouts of confusion. RECEIVED PT ON 2 LTS NC. VSS. RECEIVED PT WITH RIGHT CT TO 40 CM OF SUCTION. SX SITES CDI.URINAL AT BEDSDIE. BED LOCKED AND IN LOWEST POSITION, SAFETY PRECAUTIONS IN PLACE. CALL LIGHT WITHIN REACH. WILL MONITOR PT CAREFULLY.
--- NOTE | 2019-02-07 19:01 | NUR ---
REPORT Report given to Sam AMAAY, care endorsed.
--- NOTE | 2019-02-07 19:41 | NUR ---
oob pt assisted to chair for breathing tx per patient request.
--- NOTE | 2019-02-07 20:34 | NUR ---
ambulation Pt ambulated with RN assistance 5 laps around unit. Pt tolerated well. HR upon completion in 120's-130's, rr 20's, O2 sats 98%. Pt denies discomfort. Will continue with care.
[2019-02-07] MEDS: AMIODARONE HCL 900 MG in DEXTROSE 500 ML IV SCH (21:32)
--- NOTE | 2019-02-07 22:06 | NUR ---
Voiding Pt has not voided since catheter removal on day shift. Bladder scanner revealed approx 320 mls of urine in bladder. Instructing patient on voiding in urinal at this time. Pt verbalize understanding.
--- NOTE | 2019-02-07 22:39 | NUR ---
Voiding pt voided 200 mls of urine bed side urinal
--- NOTE | 2019-02-07 22:40 | NUR ---
Son of patient at bedside
[2019-02-08] VITALS (32 sets, daily range): BP systolic 92–131; BP diastolic 39–90
--- NOTE | 2019-02-08 00:10 | NUR ---
Preston arndt removed from patient's lower extremities
[2019-02-08] MEDS: NICARDIPINE 25MG/250ML BAG KIT 250 ML IV SCH ×5 (01:22→21:22)
--- NOTE | 2019-02-08 03:31 | NUR ---
Pt having episodes of confusion, not following commands. Bed exit alarm on, safety precautions in place. Pt states, "a flori with blonde hair is watching me in my underwear," and "there is plastic stuff hanging off the ceiling." Pt reassured no one is staring at him and the ceiling is intact.
[2019-02-08] MEDS: InsuLIN REG 1unit/0.01ml Soln (100units/ml) SC SCH ×6 (04:00→20:08)
[2019-02-08] MEDS: ACCU-CHEK COMFORT CURVE STRIP VI SCH ×6 (04:10→20:08)
[2019-02-08 04:14] LABS: Basophils # (auto) 0 uL; Basophils % (auto) 0.2 % (0.0-2.0); Eosinophils # (auto) 0.1 uL; Eosinophils % (auto) 1.1 % (0.0-7.0); Hematocrit 35.9 % (41.0-53.0); Hemoglobin 12.1 g/dL (13.5-17.5); Lymphocytes # (auto) 1.1 uL; Lymphocytes % (auto) 8.3 % (10.0-50.0); Mean Corpuscular Hemoglobin 32.1 pg (28.0-32.0); Mean Corpuscular Hgb Conc. 33.7 g/dL (32.0-36.0); Monocytes # (auto) 1.5 uL; Monocytes % (auto) 11.1 % (0.0-12.0); Neutrophils # (auto) 10.6 uL; Neutrophils % (auto) 79.3 % (37.0-80.0); Nucleated Red Blood Cells % 0.1 %; Platelet Count (auto) 212 10^3/uL (140-450); Red Blood Cells 3.78 10^6/uL (4.5-5.90); Red Cell Distribution Width 12.8 % (11.8-14.3); White Blood Cell 13.3 10^3/uL (4.4-10.8)
[2019-02-08 04:27] LABS: Albumin 3.2 g/dL (3.4-5.0); Calcium 7.8 mg/dL (8.5-10.1); Potassium 3.8 mmol/L (3.5-5.1)
[2019-02-08 04:31] LABS: BUN/Creatinine Ratio 19.8; Total Protein 6.5 g/dL (6.4-8.2)
[2019-02-08] MEDS: FUROSEMIDE 40 MG TAB PO SCH ×2 (06:02→18:35)
[2019-02-08] MEDS: IPRATROPIUM BROM 0.5 MG/2.5ML INH SOL NEB SCH ×5 (06:25→22:08)
--- NOTE | 2019-02-08 06:30 | NUR ---
INCISIONAL CARE WOUND CARE COMPLETE ORDERED. PT TOLERATED WELL.
--- NOTE | 2019-02-08 06:53 | NUR ---
PATIENT TRYING TO GET OUT OF BED LOOKING FOR PANTS AND SHOES BECAUSE HE SAID HE "OVERSTAYED BY A FEW DAYS." TOLD PT WILL CALL AND ASK HER TO BRING PT CLEAN CLOTHES. SPOKE WITH MAURICE, SHE IS UNABLE TO COME TODAY D/T FRIEND THAT DRIVES HER NOT WELL. WILL CALL AROUND 10 FOR UPDATE.
--- NOTE | 2019-02-08 07:35 | NUR ---
OPENING SHIFT NOTE Report received from Sam AMAYA, care assumed. Patient observed resting in bed. No distress or pain noted at this time. Afebrile. Patient alert and oriented x3, able to follow commands, and moves all extremities equally. Patient has periods of confusion at times and forgetfulness. Pulses palpable bilaterally. Denies chest pain. Patient on 2 L nasal cannula, lungs clear anteriorly with oxygen saturation 99%. Chest tube is patent and secure connected to atrium. Patient voids in urinal. See open heart assessment for drainage and incisions. Bed locked in lowest position, alarms in place, and call light within reach, bed alarm in place. Patient instructed to call for assistance. Will continue to monitor.
--- NOTE | 2019-02-08 08:30 | NUR ---
INTAKE Patient repositioned in high fowlers in bed with bed alarm in place to eat breakfast. Patient able to feed himself without difficulty. Patient re-oriented to self, location, and situation. Patient alert and oriented x4, he just does not believe the hospital is located in [place].
--- NOTE | 2019-02-08 09:00 | NUR ---
VOID pt voided 100 mls of urine in urinal at bedside.
[2019-02-08] MEDS: SOD CHL 0.45% 1,000 ML IV SCH (09:15)
--- NOTE | 2019-02-08 09:30 | NUR ---
ACTIVITY Patient ambulated two lap around nursing stations with walker, oxygen, and portable monitor. Patient accompanied by RN and patients . Patient tolerated activity fair. Heart rate ranging 120-130's atrial fibrillation. So patient was instructed to sit in chair. Once heart rate decreases to a lower rate will attempt ambulation again. Patient denies pain or distress. Vitals stable, call light placed within reach. Patient instructed to call for assistance.
[2019-02-08] MEDS: NITROGLYCERIN 0.4MG/HR TOPICAL PATCH TD SCH (10:00)
[2019-02-08] MEDS: POTASSIUM CHL 20 Meq TABLET PO SCH ×2 (10:11→22:24)
[2019-02-08] MEDS: ASPirin-EC 81 mg tab PO SCH (10:11)
[2019-02-08] MEDS: PANTOPRAZOLE 40 MG/10 ML VIAL INJ IV SCH ×2 (10:11→22:24)
[2019-02-08] MEDS: DOCUSATE SOD 100 MG CAP PO SCH ×2 (10:11→22:24)
[2019-02-08] MEDS: AMIODARONE HCL 200 MG TAB PO SCH (10:11)
[2019-02-08] MEDS: CHLORHEXIDINE 0.12% ORAL rinse 473ML MT SCH ×2 (10:12→22:31)
[2019-02-08] MEDS: METOPROLOL TARTRATE 25 MG TAB PO SCH ×2 (10:16→22:24)
--- NOTE | 2019-02-08 10:40 | NUR ---
MD VISIT at bedside. MD aware of patients confusion throughout the night and lack of sleep. MD does not want to order head CT at this time.
--- NOTE | 2019-02-08 10:53 | NUR ---
FALL RISK Patient is high fall risk sitting in chair. Patient continues to slouch and scoot buttocks down chair in which his bottom is barely in chair. Patient educated multiple times about sitting properly in chair and repositioning. Patient verbalized understanding but continues to place himself at risk. Patient ambulated back to bed with standby assistance from RN. Patient now resting in bed in high fowlers with call light within reach and bed alarm in place. Personal belongings placed within reach, patient encouraged to call for assistance.
--- NOTE | 2019-02-08 12:00 | NUR ---
VOID pt voided 200 mls of urine in urinal at bedside.
[2019-02-08] MEDS: Glucerna Carbsteady SHAKE Vanilla 8oz PO SCH ×2 (12:29→18:35)
--- NOTE | 2019-02-08 13:00 | NUR ---
ACTIVITY Patient ambulated five laps around nursing stations with walker, oxygen, and portable monitor. Patient accompanied by RN and physical therapy. Patient tolerated activity fair. Patient appears to be distract. Patient still having periods of confusion and poor concentration. Patient denies pain or distress. Patient placed back in bed. Bed locked in lowest position, bed alarm in place. Vitals stable, call light placed within reach. Patient instructed to call for assistance.
[2019-02-08] MEDS: PHENYLEPHRINE IV 250 ML IV SCH (15:22)
[2019-02-08] MEDS: NITROGLYCERIN 50MG/250ML 250 ML IV SCH (15:22)
[2019-02-08] MEDS: SODIUM CHLORIDE 0.9% 500 ML IV SCH (15:22)
[2019-02-08] MEDS: NOREPINEPHRINE 8 MG/250ML KIT 250 ML IV SCH (15:22)
--- NOTE | 2019-02-08 16:00 | NUR ---
VOID pt voided 180 mls of urine in urinal at bedside.
[2019-02-08] MEDS ORDERED: POLYETHYLENE GLYCOL 17 GM PWDR PO ONE (16:45)
--- NOTE | 2019-02-08 17:19 | NUR ---
ACTIVITY Patient ambulated six laps around nursing stations with walker, oxygen, and portable monitor. Patient accompanied by RN. Patient tolerated activity well. Patient placed back in bed. Bed locked in lowest position, bed alarm in place. Vitals stable, call light placed within reach. Patient instructed to call for assistance.
--- NOTE | 2019-02-08 19:10 | NUR ---
REPORT Report given to Carloz AMAYA, care endorsed.
--- NOTE | 2019-02-08 21:00 | NUR ---
DRESSING CHANGED MEDIAL CHEST INCISION SITE, CHEST TUBE SITE, AND RT .LEG INCISION SITES ARE CLEANED WITH CHLORHEXIDINE SWABS. VASELINE GAUZE APPLIED TO CHEST TUBE SITE THEN COVERED WITH 4X4 GAUZE AND TAPE. SITE LOOKS CLEAN AND DRY.
[2019-02-08] MEDS: AMIODARONE HCL 900 MG in DEXTROSE 500 ML IV SCH (21:32)
[2019-02-09] VITALS (30 sets, daily range): BP systolic 78–147; BP diastolic 43–78
[2019-02-09] MEDS: ACCU-CHEK COMFORT CURVE STRIP VI SCH ×6 (00:20→20:00)
[2019-02-09] MEDS: InsuLIN REG 1unit/0.01ml Soln (100units/ml) SC SCH ×6 (00:32→20:00)
--- NOTE | 2019-02-09 01:30 | NUR ---
OOB TO TOILET PATIENT WALKED TO TOILET. PATIENT HAD BOWEL MOVEMENT.
[2019-02-09] MEDS: NICARDIPINE 25MG/250ML BAG KIT 250 ML IV SCH ×2 (02:22→07:22)
[2019-02-09 04:06] LABS: Basophils # (auto) 0 uL; Basophils % (auto) 0.1 % (0.0-2.0); Eosinophils # (auto) 0.1 uL; Eosinophils % (auto) 0.7 % (0.0-7.0); Hematocrit 35.9 % (41.0-53.0); Hemoglobin 12.1 g/dL (13.5-17.5); Lymphocytes # (auto) 0.8 uL; Lymphocytes % (auto) 7.8 % (10.0-50.0); Mean Corpuscular Hgb Conc. 33.8 g/dL (32.0-36.0); Mean Corpuscular Volume 94.6 fL (80.0-100.0); Monocytes # (auto) 1.1 uL; Monocytes % (auto) 10.1 % (0.0-12.0); Neutrophils # (auto) 8.8 uL; Neutrophils % (auto) 81.3 % (37.0-80.0); Platelet Count (auto) 275 10^3/uL (140-450); Red Blood Cells 3.79 10^6/uL (4.5-5.90); Red Cell Distribution Width 13.1 % (11.8-14.3); White Blood Cell 10.9 10^3/uL (4.4-10.8)
[2019-02-09 04:18] LABS: BUN/Creatinine Ratio 16.9; Calcium 7.8 mg/dL (8.5-10.1); Magnesium 2.3 mg/dL (1.6-2.6); Potassium 3.9 mmol/L (3.5-5.1)
[2019-02-09] MEDS: IPRATROPIUM BROM 0.5 MG/2.5ML INH SOL NEB SCH ×6 (06:24→22:51)
[2019-02-09] MEDS: FUROSEMIDE 40 MG TAB PO SCH ×2 (06:27→18:00)
--- NOTE | 2019-02-09 06:30 | NUR ---
PATIENT IS SLEEPING. VITAL SIGNS ARE STABLE. PATIENT REFUSED TO DO AMBULATION.
--- NOTE | 2019-02-09 07:34 | NUR ---
Report received from MONIQUE Carty.
--- NOTE | 2019-02-09 08:00 | NUR ---
Patient sat up in chair for Breakfast: Bed and patient changed.
[2019-02-09] MEDS: INSULIN LANTUS (GLARGINE) 1 /0.01ml (100units/ml) SC SCH (08:15)
[2019-02-09] MEDS: Glucerna Carbsteady SHAKE Vanilla 8oz PO SCH ×3 (08:15→20:00)
[2019-02-09] MEDS: SOD CHL 0.45% 1,000 ML IV SCH (08:18)
--- NOTE | 2019-02-09 09:00 | NUR ---
Patient ambulated 3 laps around ICU,. by patient.
--- NOTE | 2019-02-09 09:50 | NUR ---
Dr. Church at bedside: Right chest tube removed, patient tolerated well. New orders- downgrade to CHIKI, and let Dr. Dykes know if okay to send patient home tomorrow on eliquis for afib. Also to start eliquis today.
[2019-02-09] MEDS: NITROGLYCERIN 0.4MG/HR TOPICAL PATCH TD SCH (10:00)
[2019-02-09] MEDS: METOPROLOL TARTRATE 25 MG TAB PO SCH (10:00)
[2019-02-09] MEDS: PANTOPRAZOLE 40 MG/10 ML VIAL INJ IV SCH (10:36)
[2019-02-09] MEDS: DOCUSATE SOD 100 MG CAP PO SCH ×2 (10:36→21:57)
[2019-02-09] MEDS: AMIODARONE HCL 200 MG TAB PO SCH (10:36)
[2019-02-09] MEDS: CHLORHEXIDINE 0.12% ORAL rinse 473ML MT SCH ×2 (10:36→22:00)
[2019-02-09] MEDS: ASPirin-EC 81 mg tab PO SCH (10:37)
[2019-02-09] MEDS: POTASSIUM CHL 20 Meq TABLET PO SCH ×2 (10:37→21:57)
--- NOTE | 2019-02-09 10:53 | NUR ---
Dr. Dykes notified and he will come and see patient 1st.
--- NOTE | 2019-02-09 10:57 | NUR ---
PT Patient already ambulated 3 laps around the nurse station during morning PT visit. Addendum: 02/09/19 at 1058 by DERICK CORDERO PTT Amended: Links added.
--- NOTE | 2019-02-09 11:01 | NUR ---
Patient incontinent of bladder. Vibha-care given twice this morning and linen and gown changed.
[2019-02-09] MEDS: METOPROLOL TARTRATE 1MG/1ML-5ML VIAL IV PRN (14:35)
--- NOTE | 2019-02-09 14:50 | NUR ---
PT Patient just finished eating lunch and declined to ambulate during afternoon PT visit. Addendum: 02/09/19 at 1451 by DERICK CORDERO PTT Amended: Links added.
--- NOTE | 2019-02-09 15:32 | NUR ---
Patient ate lunch on the chair, and ambulated 3 laps around ICU.
--- NOTE | 2019-02-09 15:44 | NUR ---
Dr. Dykes at bedside: Prescriptions written for patient, gave the prescription to the patients and she signed the copy. Copy is in the chart. Patient to start eliquis tomorrow and continue to take eliquis at home along with the other prescriptions,.Patient will be discharged home tomorrow.
[2019-02-09] MEDS ORDERED: POLYETHYLENE GLYCOL 17 GM PWDR PO PRN (16:45)
--- NOTE | 2019-02-09 19:09 | NUR ---
ENDORSED CARE TO JOPHY.
[2019-02-09] MEDS: LISINOPRIL 10 MG TAB PO SCH (21:58)
[2019-02-09] MEDS: GABAPENTIN 100 MG CAP PO SCH (21:58)
[2019-02-09] MEDS: APIXABAN 5 MG TAB PO SCH (21:58)
--- NOTE | 2019-02-09 22:09 | NUR ---
PT REFUSED MED NEB TX AT THIS TIME. PT STATED THAT HE WAS TIRED AND WOULD LIKE TO SLEEP AT THIS TIME. SPO2 95% ON RA, HR 89, RR 21. NO SHORTNESS OF BREATH NOTED. MONIQUE GARCIA IS AWARE. WILL CONTINUE WITH NEXT SCHEDULED MED NEB TX.
--- NOTE | 2019-02-09 22:53 | NUR ---
PT AGREED TO MED NEB TX AT THIS TIME. PT SAID HE HAD BEEN FEELING EXHAUSTED, BUT WAS WILLING TO SINCE HE IS AWAKE. NO ADVERSE REACTION NOTED WITH TX. WILL CONTINUE WITH NEXT SCHEDULED MED NEB.
[2019-02-10] VITALS (18 sets, daily range): BP systolic 87–109; BP diastolic 43–58
[2019-02-10] MEDS: InsuLIN REG 1unit/0.01ml Soln (100units/ml) SC SCH ×5 (00:27→16:00)
[2019-02-10] MEDS: ACCU-CHEK COMFORT CURVE STRIP VI SCH ×5 (00:27→16:34)
[2019-02-10 04:03] LABS: Basophils # (auto) 0 uL; Basophils % (auto) 0.3 % (0.0-2.0); Eosinophils # (auto) 0.2 uL; Eosinophils % (auto) 1.5 % (0.0-7.0); Hemoglobin 12.5 g/dL (13.5-17.5); Lymphocytes # (auto) 1.5 uL; Lymphocytes % (auto) 14.1 % (10.0-50.0); Mean Corpuscular Hemoglobin 32.6 pg (28.0-32.0); Mean Corpuscular Hgb Conc. 34.7 g/dL (32.0-36.0); Monocytes # (auto) 1.1 uL; Monocytes % (auto) 10.5 % (0.0-12.0); Neutrophils # (auto) 7.6 uL; Neutrophils % (auto) 73.6 % (37.0-80.0); Platelet Count (auto) 352 10^3/uL (140-450); Red Blood Cells 3.83 10^6/uL (4.5-5.90); Red Cell Distribution Width 13.3 % (11.8-14.3); White Blood Cell 10.4 10^3/uL (4.4-10.8)
[2019-02-10 04:23] LABS: BUN/Creatinine Ratio 16.3; Calcium 8.5 mg/dL (8.5-10.1); Potassium 4.2 mmol/L (3.5-5.1)
[2019-02-10 04:26] LABS: Bilirubin, Total 0.6 mg/dL (0.2-1.0); Total Protein 6.3 g/dL (6.4-8.2)
[2019-02-10] MEDS: FUROSEMIDE 40 MG TAB PO SCH (06:00)
[2019-02-10] MEDS: IPRATROPIUM BROM 0.5 MG/2.5ML INH SOL NEB SCH ×3 (06:08→14:32)
--- NOTE | 2019-02-10 06:08 | NUR ---
RT NOTE: PT AGRRED TO BREATHING TX WITH EZ-PAP. PT IS C/O BEING WEAK. RN BEDSIDE. WILL CONTINUE TO MONITOR.
[2019-02-10] MEDS: INSULIN LANTUS (GLARGINE) 1 /0.01ml (100units/ml) SC SCH (07:23)
--- NOTE | 2019-02-10 07:46 | NUR ---
Report received from MONIQUE Carty.
[2019-02-10] MEDS: Glucerna Carbsteady SHAKE Vanilla 8oz PO SCH ×2 (09:59→12:24)
[2019-02-10] MEDS: DOCUSATE SOD 100 MG CAP PO SCH (10:00)
[2019-02-10] MEDS: LISINOPRIL 10 MG TAB PO SCH (10:00)
[2019-02-10] MEDS ORDERED: PANTOPRAZOLE 40 MG TAB PO SCH (10:00)
[2019-02-10] MEDS ORDERED: CHOLECALCIFEROL (VITD3) 1,000 UNIT TAB PO SCH (10:00)
[2019-02-10] MEDS ORDERED: METOPROLOL SUCCINATE XL 50 MG TAB PO SCH (10:00)
[2019-02-10] MEDS ORDERED: SENNA 8.6 MG TAB PO SCH (10:00)
[2019-02-10] MEDS: CHLORHEXIDINE 0.12% ORAL rinse 473ML MT SCH (10:00)
[2019-02-10] MEDS: ASPirin-EC 81 mg tab PO SCH (10:00)
[2019-02-10] MEDS: APIXABAN 5 MG TAB PO SCH (10:01)
[2019-02-10] MEDS: POTASSIUM CHL 20 Meq TABLET PO SCH (10:01)
[2019-02-10] MEDS: GABAPENTIN 100 MG CAP PO SCH (10:01)
[2019-02-10] MEDS: AMIODARONE HCL 200 MG TAB PO SCH (10:03)
--- NOTE | 2019-02-10 10:13 | NUR ---
Dr. Dykes at bedside -discharge patient home after walker arrives for social insurance analyst.
--- NOTE | 2019-02-10 10:13 | NUR ---
Report given to MONIQUE Agustin in [facility] - waiting for wheel chair walker for discharge home. Patient stable and transported via bed on monitor, and room air.
[2019-02-10] MEDS ORDERED: LISI10TA6 PO (10:14)
--- NOTE | 2019-02-10 10:20 | NUR ---
Transferred from ICU to [facility] via hospital bed, on monitor, and room air. Patient connected to unit monitoring. Patient oriented to SUSANNE MONTEJO RN primary RN, unit, room, bed, and unit policies regarding patient care and visiting hours. All questions and concerns addressed, patient verbalized understanding. Plan of care discussed with patient and his that plan to discharge home today, pending for SS for Home health and walker. They made aware.
--- NOTE | 2019-02-10 11:21 | NUR ---
Nutrition Follow-up Notes Wt.: 63.0 kg Pt's was getting tx to [facility] when rounded this am. pt awaiting walker. pt with no distress noted per nursing. Pt's currently on Mechanical Soft Consistent Standard Carb: 60 gms/meal diet with adeuqte PO of 100% x 4 per RN doc along with Glucerna 1 carton tid Est. Needs based on BW (66 kg): 7837-1370 kcal (25-30 kcal/kgBW), 66-79 gms pro (1.0-1.2 gms/kgBW). Will continue to monitor pertinent labs and reassess nutrient need prn Labs: BUN 23 H, CREAT 1.41 , ALB 3.0 L, GLU 149 H Skin: Joel scale 20, mod risk, pt's medial chest incision dry and intact per metal tile setter. GI: Pt's no bowel activity since 02/01/19 per metal tile setter. PES: Resolved: Increased nutrient needs r/t acute/chronic medical condition aeb 94% IBW, BMI 21.17 kg/m2, decreased muscle mass, s/p surgery, mild hypoalbuminemia, <75% consumed meals Altered nutrition related lab values r/t current/chronic medical condition aeb hyperglycemia, elev A1C hypocalcemia Will continue to monitor PO intake, skin status, pertinent labs and weight trend. F/u in 3 to 5 days. Rec.: 1.) Continue close supervision during meals. 2.) If Albumin continues trending down, consider Prostat 1 pkt BID. 3) Refer pt to CDE/RD for further nutrition education and weight monitoring upon discharge. 4.) Continue current plan of care.
--- NOTE | 2019-02-10 11:33 | NUR ---
RT NOTE: PT GIVEN TX WITH EZ PAP. TOLERATING WELL. NO SIGNS OF DISTRESS. WILL CONTINUE TO MONITOR.
--- NOTE | 2019-02-10 13:10 | NUR ---
Patient sitting on the bed, having Lunch at this time, his at the bedside. Watching DVD open heart surgery for discharge home.
--- NOTE | 2019-02-10 14:20 | NUR ---
Patient and his watching the DVD open heart surgery for D/C home again, no question noted at this time. Walker at the bedside.
--- NOTE | 2019-02-10 14:32 | NUR ---
RT NOTE: PT TAKING TX AT THIS TIME WITH EZ PAP. NO SIGNS OF DISTRESS NOTED. BEDSIDE. WILL CONTINUE TO MONITOR.
[2019-02-10] MEDS ORDERED: D5W IV ONE (15:02)
[2019-02-10] MEDS ORDERED: NITROGLYCERIN 50MG/250ML BTL IV ONE (15:02)
[2019-02-10] MEDS ORDERED: MILRINONE 20 MG/100 ML IV ONE (15:02)
--- NOTE | 2019-02-10 15:15 | NUR ---
Patient had small BM, walked to the restroom, tolerated well.
--- NOTE | 2019-02-10 15:40 | NUR ---
Called and left the message to SS regarding HH still pending. Will wait a call back from SS.
--- NOTE | 2019-02-10 16:07 | NUR ---
Discharge planning per SS consult, patient has orders for a rollator walker and home health upon dc/ Referral was sent to [facility]. Placed a follow up call, spoke with Uyen and was advised that patient will be accepted upon discharge and start of care will be within 24-48 hours. Referral for walker was sent to [facility]. Placed a follow up call, spoke with Tripp and was advised that the walker had already been delivered. Called the attending nurse Quentin to advise of update to SS consult, and she confirmed the walker was delivered. Addendum: 02/10/19 at 1613 by DEYSI BYRD Amended: Links added.
--- NOTE | 2019-02-10 17:15 | NUR ---
Discharge instructions given as ordered. Encourage to follow up with PMD as instructed. All questions and concerns addressed. Patient verbalized understanding. Medication reconciliation form completed and copy given to patient. IV removed with catheter intact, pressure dressing applied, quesada catheter removed. Patient taken to vehicle via wheelchair with all personal belongings, accompanied by staff and family member. No distress noted at time of departure.
== END 2019-02-10 17:20 | disposition home health service (06) | DRG 235 ==
LOC: TELE-WESTW 12:57 → ICU WEST 20:35 → TELE-CENTR 02-10 10:20 → DOU IN ICU 02-10 10:21
PROVIDERS: ADMIT Internal Medicine; ATTEND Internal Medicine
PROC: 02100Z9 Bypass Coronary Artery, One Artery from Left Internal Mammary, Open Approach (ICD-10-PCS; 2019-02-02)
PROC: 06BP4ZZ Excision of Right Saphenous Vein, Percutaneous Endoscopic Approach (ICD-10-PCS; 2019-02-02)
PROC: 5A1221Z Performance of Cardiac Output, Continuous (ICD-10-PCS; 2019-02-02)
PROC: 021209W Bypass Coronary Artery, Three Arteries from Aorta with Autologous Venous Tissue, Open Approach (ICD-10-PCS; principal; 2019-02-02 06:55)
PROC: 5A09357 Assistance with Respiratory Ventilation, Less than 24 Consecutive Hours, Continuous Positive Airway Pressure (ICD-10-PCS; 2019-02-03)
PROC: 5A09357 Assistance with Respiratory Ventilation, Less than 24 Consecutive Hours, Continuous Positive Airway Pressure (ICD-10-PCS; 2019-02-04)
PROC: 5A09357 Assistance with Respiratory Ventilation, Less than 24 Consecutive Hours, Continuous Positive Airway Pressure (ICD-10-PCS; 2019-02-05)
DX: I25.110 Atherosclerotic heart disease of native coronary artery with unstable angina pectoris (principal); J96.01 Acute respiratory failure with hypoxia; I21.4 Non-ST elevation (NSTEMI) myocardial infarction; I48.92 Unspecified atrial flutter; J98.11 Atelectasis; E78.5 Hyperlipidemia, unspecified; I48.91 Unspecified atrial fibrillation; J44.9 Chronic obstructive pulmonary disease, unspecified; I12.9 Hypertensive chronic kidney disease with stage 1 through stage 4 chronic kidney disease, or unspecified chronic kidney disease; E11.22 Type 2 diabetes mellitus with diabetic chronic kidney disease; N18.1 Chronic kidney disease, stage 1; D72.829 Elevated white blood cell count, unspecified; K21.9 Gastro-esophageal reflux disease without esophagitis; Z79.4 Long term (current) use of insulin; Z83.3 Family history of diabetes mellitus; Z88.1 Allergy status to other antibiotic agents; Z88.8 Allergy status to other drugs, medicaments and biological substances
CPT/HCPCS: 36415; 36600; 71045; 80048; 80053; 80061; 80162; 82805; 82962; 83036; 83735; 84100; 85025; 85576; 85610; 85730; 86703; 86704; 86706; 86708; 86803; 86850; 86900; 86901; 86920; 87070; 87081; 87205; 87340; 92610; 93005; 93306; 93886; 93970; 94002; 94003; 94640; 94660; 97116; 97163; 97530; C1751; C1768; C9113; G0378; J0131; J0153; J0610; J0690; J1100; J1642; J1644; J1815; J2250; J2440; J2704; J3430; J3480; J7060; P9047

== ENCOUNTER 2019-02-12 15:33 | Inpatient (IN) | payer OTHER ==
[~2019-02-12] VITALS: Ht 170.2 cm; Wt 68.1 kg
[~2019-02-12 15:33] MED LIST changes: +CETI10TA80 PO; +SENN-46 PO
[2019-02-12 16:53] LABS: Basophils # (auto) 0 uL; Basophils % (auto) 0.3 % (0.0-2.0); Eosinophils # (auto) 0 uL; Eosinophils % (auto) 0.4 % (0.0-7.0); Hematocrit 36.3 % (41.0-53.0); Hemoglobin 12.3 g/dL (13.5-17.5); Lymphocytes # (auto) 0.9 uL; Lymphocytes % (auto) 8.4 % (10.0-50.0); Mean Corpuscular Hemoglobin 32.2 pg (28.0-32.0); Mean Corpuscular Volume 94.8 fL (80.0-100.0); Monocytes # (auto) 0.7 uL; Monocytes % (auto) 6.9 % (0.0-12.0); Neutrophils # (auto) 8.9 uL; Platelet Count (auto) 460 10^3/uL (140-450); Red Blood Cells 3.82 10^6/uL (4.5-5.90); Red Cell Distribution Width 13.5 % (11.8-14.3); White Blood Cell 10.7 10^3/uL (4.4-10.8)
[2019-02-12 17:13] LABS: Albumin 2.9 g/dL (3.4-5.0); Calcium 8.3 mg/dL (8.5-10.1); Magnesium 2.3 mg/dL (1.6-2.6); Potassium 4.9 mmol/L (3.5-5.1)
[2019-02-12 17:19] LABS: Bilirubin, Total 0.5 mg/dL (0.2-1.0); Total Protein 6.5 g/dL (6.4-8.2)
[2019-02-12 17:56] LABS: Urine WBC None Seen /hpf (0 - 3)
[2019-02-12 18:19] LABS: Urine Bacteria NONE SEEN /hpf (None Seen); Urine Blood 1+ /uL (Negative); Urine Mucus FEW (None Seen); Urine Specific Gravity 1.022 (1.001-1.035)
[2019-02-12] MEDS ORDERED: DEXTROSE (50%) 50ML SYRG IV PRN (18:45)
[2019-02-12] MEDS ORDERED: MORPHINE SULF INJ 2 MG/ML SYRINGE 1ML IV PRN (18:45)
[2019-02-12] MEDS ORDERED: NITROGLYCERIN 0.4 MG SL TAB SL PRN (18:45)
[2019-02-12] MEDS: SODIUM CHLORIDE 0.9% 1,000 ML IV SCH (18:57)
--- NOTE | 2019-02-12 20:35 | NUR ---
Telemetry admit from ER [facility] admitted to Telemetry unit. Patient oriented to Amaya NuñezRN primary RN, unit, room, bed, and unit policies regarding patient care and visiting hours. Patient now on continuous telemetry monitoring, tele box #49 and telemetry reading on arrival to unit is A-fib. AAOx4. Patient placed on bedside 2L oxygen via nasal cannula, on bedrest, urinal at bedside. Wound to right ankle noted, minimal serosanguineous drainage. Wound to upper ABD noted, dressing CDI. Weighed by bed scale and encouraged to call if they need something. All questions and concerns addressed, patient verbalized understanding. Bed in lowest locked position, side rails up x2, call light within reach. Will continue to monitor every hour and as needed.
[2019-02-12 22:15] VITALS: BP 109/66
[2019-02-12] MEDS: ACCU-CHEK COMFORT CURVE STRIP VI SCH (22:18)
[2019-02-12] MEDS: AMIODARONE HCL 200 MG TAB PO SCH (22:18)
[2019-02-12] MEDS: GABAPENTIN 100 MG CAP PO SCH (22:18)
[2019-02-12] MEDS: ATORVASTATIN 20 MG TAB PO SCH (22:18)
[2019-02-12] MEDS: APIXABAN 5 MG TAB PO SCH (22:18)
[2019-02-12] MEDS: InsuLIN REG 1unit/0.01ml Soln (100units/ml) SC SCH (22:19)
[2019-02-12] MEDS ORDERED: AMIO200T33 PO (23:39)
[2019-02-12] MEDS ORDERED: MULT-569 PO (23:39)
[2019-02-12] MEDS ORDERED: FURO40TA4 PO (23:39)
[2019-02-12] MEDS ORDERED: POTA1TAB61 PO (23:39)
[2019-02-12] MEDS ORDERED: LISI10TA6 PO (23:40)
[2019-02-12] MEDS ORDERED: GABA100C9 PO (23:40)
[2019-02-13] MEDS ORDERED: INFLUENZA QUAD 2019-2020 0.5ml SYRG IM ONE ×2 (00:15→17:45)
[2019-02-13 04:44] VITALS: BP 102/70
[2019-02-13] MEDS: ACCU-CHEK COMFORT CURVE STRIP VI SCH ×4 (06:45→22:38)
[2019-02-13] MEDS: SODIUM CHLORIDE 0.9% 1,000 ML IV SCH ×2 (06:45→15:30)
[2019-02-13] MEDS: InsuLIN REG 1unit/0.01ml Soln (100units/ml) SC SCH ×4 (06:47→22:39)
--- NOTE | 2019-02-13 07:30 | NUR ---
Opening Shift Note Assumed care of patient, awake and alert. No S/S of distress/SOB or pain. Instructed on POC and to call for assist PRN, will continue to monitor for changes Q1hr and PRN.
[2019-02-13] MEDS: Glucerna Carbsteady SHAKE Vanilla 8oz PO SCH ×3 (08:00→18:00)
[2019-02-13 09:00] VITALS: BP 142/76
[2019-02-13] MEDS: AMIODARONE HCL 200 MG TAB PO SCH ×2 (09:49→22:38)
[2019-02-13] MEDS: GABAPENTIN 100 MG CAP PO SCH ×2 (09:49→22:38)
[2019-02-13] MEDS: APIXABAN 5 MG TAB PO SCH ×2 (09:49→22:38)
--- NOTE | 2019-02-13 11:15 | NUR ---
WOUND CARE NOTE: Wound Care in to see patient per wound care request regarding wounds that are noted present on admission. Bedside nurse took photograph of patient's wounds upon admission for reference. Patient is 68 years old male with admitting diagnosis of Hypotension, Gen Weakness. Patient with history of A Fib, DM, High Lipids, Htn. Patient is resting in bed in Rm. 293A. He's awake, alert and oriented. He's in no stated pain at this time. Patient is able to turn and reposition self. His Joel score is 18. Patient is s/p open heart surgery on 02/02/19. His 20cm mid sternal incision is well approximated with linear brown, dry scab, no drainage/odor noted,left open to air. 3x wounds noted to anterior abdomen, previous chest tube insertion sites. Wounds measuring from left: 0.2x2cm, 1.5x0.6cm and 0.3x1.8cm. Abdominal wounds are red with brown scabs at wound edges, minimal serous drainage noted, no odor noted. Small wound also noted to patient's R medial ankle measuring 0.5x0.2cm with thin brown scab, scant serous drainage. Wounds surrounding skin is pink and soft. Cleansed wounds with NS, wound culture specimen taken and sent to lab for processing. R medial calf noted with glued incision that is clean and dry, left open to air. Cleansed patient's R medial ankle and abdominal wounds with NS, patted dry with sterile gauze, applied Thera honey gel, covered R medial ankle wound with small Opti foam gentle dressing. Covered abdominal wounds with bordered gauze dressing (Primapore dressing). Patient tolerated well. Patient's arrived at bedside. Patient and family education given regarding wound care, wound healing, verbalized understanding. Bed in low position, call salvador within reach with all safety precautions in placed. RECOMMENDATION: EOD/PRN dressing change to abdominal and R medial ankle wounds per MD order, redistribute pressure points with pillows, continue monitoring by wound care while patient is hospitalized. Addendum: 02/13/19 at 1604 by Tiny Olvera RN Amended: Links added. Addendum: 02/13/19 at 1605 by Tiny Olvera RN Bedside nurse to continue dressing changes per MD order, no further wound care monitoring needed at this time.
[2019-02-13] MEDS ORDERED: OPTISON 3ml Vial for INJ IV ONE (11:52)
[2019-02-13 13:00] VITALS: BP 145/78
--- NOTE | 2019-02-13 15:43 | NUR ---
Dr. Elsy Chambers in to see patient as primary MD.
[2019-02-13 16:23] VITALS: BP 115/72
--- NOTE | 2019-02-13 19:50 | NUR ---
Opening Shift Note Assumed care of patient, awake and alert. No S/S of distress/SOB or pain. On 2L oxygen via nasal cannula. Ambulatory with min assist. Bed in lowest locked position, side rails up x2, call light within reach. Instructed on POC and to call for assist PRN, will continue to monitor for changes Q1hr and PRN.
[2019-02-13 22:00] VITALS: BP 110/62
[2019-02-13] MEDS: ATORVASTATIN 20 MG TAB PO SCH (22:38)
[2019-02-14] MEDS: SODIUM CHLORIDE 0.9% 1,000 ML IV SCH ×2 (01:30→12:11)
[2019-02-14 05:00] VITALS: BP 121/67
[2019-02-14 05:14] LABS: Basophils # (auto) 0 uL; Eosinophils # (auto) 0.1 uL; Hemoglobin 11.8 g/dL (13.5-17.5); Lymphocytes # (auto) 0.8 uL; Monocytes # (auto) 0.7 uL; Neutrophils # (auto) 8.1 uL
[2019-02-14 05:18] LABS: Basophils % (auto) 0.4 % (0.0-2.0); Eosinophils % (auto) 0.6 % (0.0-7.0); Hematocrit 35.3 % (41.0-53.0); Lymphocytes % (auto) 8.2 % (10.0-50.0); Mean Corpuscular Hemoglobin 31.6 pg (28.0-32.0); Mean Corpuscular Hgb Conc. 33.5 g/dL (32.0-36.0); Mean Corpuscular Volume 94.4 fL (80.0-100.0); Monocytes % (auto) 7.3 % (0.0-12.0); Neutrophils % (auto) 83.5 % (37.0-80.0); Platelet Count (auto) 472 10^3/uL (140-450); Red Blood Cells 3.73 10^6/uL (4.5-5.90); Red Cell Distribution Width 13.5 % (11.8-14.3); White Blood Cell 9.7 10^3/uL (4.4-10.8)
[2019-02-14 05:35] LABS: Calcium 8.3 mg/dL (8.5-10.1); Potassium 4.3 mmol/L (3.5-5.1)
[2019-02-14] MEDS: ACCU-CHEK COMFORT CURVE STRIP VI SCH ×3 (06:42→17:23)
[2019-02-14] MEDS: InsuLIN REG 1unit/0.01ml Soln (100units/ml) SC SCH ×3 (06:43→17:24)
[2019-02-14 09:00] VITALS: BP 103/51
--- NOTE | 2019-02-14 09:15 | NUR ---
PT AMBULATING WITH PT
[2019-02-14] MEDS: AMIODARONE HCL 200 MG TAB PO SCH (09:56)
[2019-02-14] MEDS: APIXABAN 5 MG TAB PO SCH (09:57)
[2019-02-14] MEDS: GABAPENTIN 100 MG CAP PO SCH (09:57)
[2019-02-14] MEDS: Glucerna Carbsteady SHAKE Vanilla 8oz PO SCH ×2 (10:03→12:11)
[2019-02-14 13:00] VITALS: BP 94/48
--- NOTE | 2019-02-14 13:45 | NUR ---
PT OFF UNIT FOR PROCEDURE
--- NOTE | 2019-02-14 14:15 | NUR ---
PT ARRIVAL BACK ON UNIT FROM PROCEDURE
[2019-02-14 17:00] VITALS: BP 126/68
--- NOTE | 2019-02-14 18:10 | NUR ---
[facility] CALLED RE: SOCIAL SERVICE HOME HEALTH SAFETY EVALUATION. ACCORDING TO NUCLEAR MEDICINE SPECIALIST THE DISCHARGE IS NOT TO BE HELD AND THE SERVICE WILL BE SET UP TOMORROW 02/15/2019.
--- NOTE | 2019-02-14 18:56 | NUR ---
Discharge instructions given as ordered. Encourage to follow up with PMD as instructed. All questions and concerns addressed. Patient verbalized understanding. Medication reconciliation form completed and copy given to patient. . IV removed with catheter intact, pressure dressing applied,. Telemetry unit returned to ICU. Patient taken to vehicle via wheelchair with all personal belongings, accompanied by staff and family member. No distress noted at time of departure.
--- NOTE | 2019-02-15 08:55 | NUR ---
[facility] Cande at [facility] will review and see if they will accept pt.
--- NOTE | 2019-02-15 12:44 | NUR ---
Cande at [facility] are accepting pt and need auth, I called Erika and had to leave message to send auth to [facility], I also faxed to [facility] to send auth
== END 2019-02-14 18:54 | disposition home health service (06) | DRG 314 ==
LOC: EDBD 15:33 → ER 15:37 → TELE 15:38 → TELE-WESTW 20:18
PROVIDERS: ADMIT Nurse Practitioner Acute Care; ATTEND Internal Medicine
DX: I95.9 Hypotension, unspecified (principal); N17.0 Acute kidney failure with tubular necrosis; E44.0 Moderate protein-calorie malnutrition; N18.3 Chronic kidney disease, stage 3 (moderate); D64.9 Anemia, unspecified; E78.5 Hyperlipidemia, unspecified; I25.10 Atherosclerotic heart disease of native coronary artery without angina pectoris; I48.91 Unspecified atrial fibrillation; I13.10 Hypertensive heart and chronic kidney disease without heart failure, with stage 1 through stage 4 chronic kidney disease, or unspecified chronic kidney disease; I48.0 Paroxysmal atrial fibrillation; E11.40 Type 2 diabetes mellitus with diabetic neuropathy, unspecified; K21.9 Gastro-esophageal reflux disease without esophagitis; E11.22 Type 2 diabetes mellitus with diabetic chronic kidney disease; Z68.23 Body mass index [BMI] 23.0-23.9, adult; Z88.1 Allergy status to other antibiotic agents; Z88.8 Allergy status to other drugs, medicaments and biological substances; I25.2 Old myocardial infarction; Z79.01 Long term (current) use of anticoagulants; Z79.899 Other long term (current) drug therapy; Z83.3 Family history of diabetes mellitus; Z95.1 Presence of aortocoronary bypass graft
CPT/HCPCS: 36415; 71045; 76775; 78582; 80048; 80053; 81001; 82962; 83735; 83880; 84484; 85025; 85379; 87081; 87205; 93005; 93306; 93970; 94761; 96360; 97110; 97116; 97163; 97530; G0378; J1815; Q9956

== ENCOUNTER 2019-02-16 10:46 | Inpatient (IN) | payer OTHER ==
[~2019-02-16] VITALS: Ht 170.2 cm; Wt 59.9 kg
[~2019-02-16 10:46] MED LIST changes: +AMIO200T33 PO; +MULT-569 PO; +POTA1TAB61 PO
[2019-02-16] MEDS ORDERED: SODIUM CHLORIDE 0.9% 1,000 ML IVB ONE (11:24)
[2019-02-16 11:41] LABS: Eosinophils # (auto) 0 uL; Lymphocytes # (auto) 0.7 uL; Lymphocytes % (auto) 7.7 % (10.0-50.0); Monocytes # (auto) 0.7 uL
[2019-02-16 11:43] LABS: Basophils # (auto) 0.1 uL; Basophils % (auto) 0.6 % (0.0-2.0); Eosinophils % (auto) 0.3 % (0.0-7.0); Hemoglobin 12.2 g/dL (13.5-17.5); Mean Corpuscular Hemoglobin 31.1 pg (28.0-32.0); Mean Corpuscular Hgb Conc. 32.9 g/dL (32.0-36.0); Mean Corpuscular Volume 94.5 fL (80.0-100.0); Monocytes % (auto) 7.8 % (0.0-12.0); Neutrophils # (auto) 7.8 uL; Neutrophils % (auto) 83.6 % (37.0-80.0); Platelet Count (auto) 550 10^3/uL (140-450); Red Blood Cells 3.92 10^6/uL (4.5-5.90); Red Cell Distribution Width 13.8 % (11.8-14.3); White Blood Cell 9.3 10^3/uL (4.4-10.8)
[2019-02-16 11:57] LABS: Albumin 2.9 g/dL (3.4-5.0); BUN/Creatinine Ratio 8.6; Calcium 8.5 mg/dL (8.5-10.1); INR 1.11 (0.9-1.15); Partial Thromboplastin Time 30.5 sec (23.64-32.05); Potassium 4.7 mmol/L (3.5-5.1)
[2019-02-16 12:03] LABS: Bilirubin, Total 0.3 mg/dL (0.2-1.0); Total Protein 6.8 g/dL (6.4-8.2)
[2019-02-16] MEDS ORDERED: ASPirin-EC 81 mg tab PO ONE (14:00)
[2019-02-16] MEDS ORDERED: MORPHINE SULF INJ 2 MG/ML SYRINGE 1ML IV PRN (17:30)
[2019-02-16] MEDS ORDERED: SODIUM CHLORIDE 0.9% 500 ML IV ONE (17:30)
[2019-02-16] MEDS ORDERED: NITROGLYCERIN 0.4 MG SL TAB SL PRN (17:30)
[2019-02-16 21:50] VITALS: BP 122/67
--- NOTE | 2019-02-16 21:50 | NUR ---
Telemetry admit from ER [facility] admitted to Telemetry unit after SBAR received. Patient oriented to MERARY WEBB RN primary RN, unit, room, bed, and unit policies regarding patient care and visiting hours. Patient now on continuous telemetry monitoring, tele box # 42 and telemetry reading on arrival to unit is SR. Patient placed on bedside oxygen, weighed by bedscale and encouraged to call if they need something. Patient s/p CABG surgical scar mid chest and 3 puncture sites upper abdomen. dressing C/D/I. All questions and concerns addressed, patient verbalized understanding. Note:
[2019-02-16] MEDS ORDERED: ATORVASTATIN 20 MG TAB PO SCH (22:00)
[2019-02-16] MEDS: APIXABAN 5 MG TAB PO SCH (22:27)
[2019-02-16] MEDS: AMIODARONE HCL 200 MG TAB PO SCH (22:27)
[2019-02-16] MEDS: GABAPENTIN 100 MG CAP PO SCH (22:28)
[2019-02-16] MEDS: METOPROLOL TARTRATE 25 MG TAB PO SCH (22:28)
[2019-02-17 05:00] VITALS: BP 105/72
[2019-02-17] MEDS: GABAPENTIN 100 MG CAP PO SCH ×2 (06:13→15:36)
[2019-02-17] MEDS: METOPROLOL TARTRATE 25 MG TAB PO SCH ×2 (06:13→10:00)
[2019-02-17] MEDS ORDERED: INSULIN LANTUS (GLARGINE) 1 /0.01ml (100units/ml) SC SCH (07:00)
--- NOTE | 2019-02-17 07:00 | NUR ---
OPENING SHIFT NOTE ASSUMED CARE OF THE PATIENT FROM THE CRANE HOIST OR LIFT OPERATOR RN. THE PATIENT IS A&OX4, NO SIGNS OR SYMPTOMS OF DISTRESS. EDUCATED THE PATIENT ON POC AND PATIENT VERBALIZED UNDERSTANDING. THE PATIENT'S CALL LIGHT IS WITHIN REACH AND BED IS IN THE LOWEST, LOCKED POSITION. WILL ROUND HOURLY AND CONTINUE TO MONITOR.
[2019-02-17 07:25] LABS: Basophils # (auto) 0 uL; Basophils % (auto) 0.4 % (0.0-2.0); Eosinophils # (auto) 0.1 uL; Eosinophils % (auto) 0.8 % (0.0-7.0); Hemoglobin 12.1 g/dL (13.5-17.5); Monocytes # (auto) 0.7 uL; Red Cell Distribution Width 13.8 % (11.8-14.3)
[2019-02-17 07:27] LABS: Hematocrit 35.9 % (41.0-53.0); Lymphocytes # (auto) 0.8 uL; Lymphocytes % (auto) 9.7 % (10.0-50.0); Mean Corpuscular Hemoglobin 31.9 pg (28.0-32.0); Mean Corpuscular Hgb Conc. 33.8 g/dL (32.0-36.0); Mean Corpuscular Volume 94.3 fL (80.0-100.0); Monocytes % (auto) 9.2 % (0.0-12.0); Neutrophils # (auto) 6.2 uL; Neutrophils % (auto) 79.9 % (37.0-80.0); Platelet Count (auto) 526 10^3/uL (140-450); White Blood Cell 7.8 10^3/uL (4.4-10.8)
[2019-02-17 07:44] LABS: Potassium 4.7 mmol/L (3.5-5.1)
[2019-02-17 07:48] LABS: BUN/Creatinine Ratio 8.8; Calcium 8.7 mg/dL (8.5-10.1)
--- NOTE | 2019-02-17 08:58 | NUR ---
ORTHOSTATIC VITAL SIGNS LAYING DOWN BP: 112/69; HEART RATE 86; OXYGEN SATURATION 100% SITTING BP: 112/56; HEART RATE 96; OXYGEN SATURATION 100% STANDING BP 129/71; HEART RATE 102; OXYGEN SATURATION 99% NOTE: THE PATIENT WAS UNSTEADY UPON STANDING AND HAD TO HAVE HELP STANDING UPRIGHT. THE PATIENT AND PATIENT'S STATED THAT PRIOR TO HIS CABG HIS GAIT WAS STEADY AND HE COULD WALK WITHOUT HELP. WILL CONTINUE TO MONITOR.
--- NOTE | 2019-02-17 09:05 | NUR ---
PAGED DR. AGUIRRE TO GIVE ORTHOSTATIC VITAL RESULTS
--- NOTE | 2019-02-17 09:10 | NUR ---
SPOKE WITH DR. CARLA AGUIRRE STATES TO NOT GIVE BETA BLOCKERS UNTIL THE PATIENT IS SEEN IN HIS OFFICE. ORTHOSTATIC VITALS GIVEN. NO OHTER NEW ORDERS.
--- NOTE | 2019-02-17 09:28 | NUR ---
PATIENT UP WITH PT.
[2019-02-17] MEDS ORDERED: CHOLECALCIFEROL (VITD3) 1,000 UNIT TAB PO SCH (10:00)
[2019-02-17] MEDS ORDERED: SENNA 8.6 MG TAB PO SCH (10:00)
[2019-02-17] MEDS ORDERED: PANTOPRAZOLE 40 MG TAB PO SCH (10:00)
[2019-02-17] MEDS: APIXABAN 5 MG TAB PO SCH (10:16)
[2019-02-17] MEDS: AMIODARONE HCL 200 MG TAB PO SCH (10:16)
[2019-02-17 13:00] VITALS: BP 113/64
--- NOTE | 2019-02-17 15:00 | NUR ---
D/C Planning Per consult for home health safety evaluation, physical therapy and HMO HARP Program. Contact [facility] Ph:) Fax:) faxed medical records. Per Cande from [facility] Pt has been accepted and service to start within 48hrs upon d/c day. Cande advised [facility] medical group provider them with authorization. Justice Leblanc. Addendum: 02/17/19 at 1505 by NIKHIL EMERY Amended: Links added.
--- NOTE | 2019-02-17 15:30 | NUR ---
assessment Patient is a 68 year old male who is alert and oriented. Patients cognitive abilities are intact. Prior to admission patient lived home with his Mya and functioned with her assistance since his CABG 02/02/19. Patient has a rollator for home use. Patient has home health for PT. Patient will need a resumption order on discharge. Patients PCP is Dr Velasquez. Patient has an order for SNF. Patient refuses SNF and wants to return home on discharge. Per patient he will return home to his prior living arrangements post discharge and family will transport him home. I informed patient he has a right to speak to a high school social studies tutor regarding all care. I informed patient he has a right to participate in any and all discharge planning. Patient has a POA and advanced directive. Patient verbalized understanding and agreed to discharge plan. Addendum: 02/17/19 at 1533 by Melody LAYTON Amended: Links added.
--- NOTE | 2019-02-17 16:20 | NUR ---
Discharge instructions given as ordered. Encourage to follow up with PMD as instructed. All questions and concerns addressed. Patient verbalized understanding. Medication reconciliation form completed and copy given to patient. Removed with catheter intact, pressure dressing applied. Telemetry unit returned to ICU. Patient taken to vehicle via wheelchair with all personal belongings, accompanied by staff and family member. No distress noted at time of departure.
== END 2019-02-17 16:20 | disposition home health service (06) | DRG 684 ==
LOC: ER 10:46 → TELE 10:47 → TELE-CENTR 23:01
PROVIDERS: ADMIT Internal Medicine; ATTEND Internal Medicine
DX: N17.9 Acute kidney failure, unspecified (principal); I95.9 Hypotension, unspecified; E86.0 Dehydration; D64.9 Anemia, unspecified; R55 Syncope and collapse; K21.9 Gastro-esophageal reflux disease without esophagitis; I10 Essential (primary) hypertension; E11.40 Type 2 diabetes mellitus with diabetic neuropathy, unspecified; I48.0 Paroxysmal atrial fibrillation; E78.5 Hyperlipidemia, unspecified; I25.2 Old myocardial infarction; Z95.1 Presence of aortocoronary bypass graft; Z83.3 Family history of diabetes mellitus; Z88.1 Allergy status to other antibiotic agents; Z88.8 Allergy status to other drugs, medicaments and biological substances
CPT/HCPCS: 36415; 70450; 71045; 80048; 80053; 82962; 83735; 83880; 84484; 85025; 85610; 85730; 87081; 93005; 96360; G0378; J1815

== ENCOUNTER 2019-02-21 13:25 | Inpatient (IN) | payer OTHER ==
[~2019-02-21] VITALS: Ht 172.7 cm; Wt 73.0 kg
[2019-02-21] MEDS ORDERED: MORPHINE SULF INJ 2 MG/ML SYRINGE 1ML IV ONE (14:00)
[2019-02-21] MEDS ORDERED: ASPirin 81 mg TAB PO ONE (14:00)
[2019-02-21] MEDS ORDERED: ONDANSETRON HCL 4 MG/2 ML VIAL IV ONE (14:00)
[2019-02-21 14:26] LABS: Basophils # (auto) 0.1 uL; Eosinophils # (auto) 0 uL; Mean Corpuscular Hemoglobin 30.9 pg (28.0-32.0); Red Blood Cells 4.32 10^6/uL (4.5-5.90)
[2019-02-21 14:28] LABS: Basophils % (auto) 1.1 % (0.0-2.0); Eosinophils % (auto) 0.2 % (0.0-7.0); Hematocrit 40.8 % (41.0-53.0); Hemoglobin 13.3 g/dL (13.5-17.5); Lymphocytes # (auto) 0.6 uL; Lymphocytes % (auto) 9.6 % (10.0-50.0); Mean Corpuscular Hgb Conc. 32.7 g/dL (32.0-36.0); Mean Corpuscular Volume 94.5 fL (80.0-100.0); Monocytes # (auto) 0.6 uL; Monocytes % (auto) 8.9 % (0.0-12.0); Neutrophils # (auto) 5.4 uL; Neutrophils % (auto) 80.2 % (37.0-80.0); Platelet Count (auto) 597 10^3/uL (140-450); Red Cell Distribution Width 13.8 % (11.8-14.3); White Blood Cell 6.7 10^3/uL (4.4-10.8)
[2019-02-21 14:56] LABS: Albumin 3.3 g/dL (3.4-5.0); Calcium 9.2 mg/dL (8.5-10.1); Magnesium 2.1 mg/dL (1.6-2.6); Potassium 4.9 mmol/L (3.5-5.1)
[2019-02-21 15:02] LABS: BUN/Creatinine Ratio 12.1; Bilirubin, Total 0.5 mg/dL (0.2-1.0); Total Protein 7.3 g/dL (6.4-8.2)
[2019-02-21] MEDS ORDERED: SODIUM CHLORIDE 0.9% 1,000 ML IV ONE (17:45)
[2019-02-21] MEDS ORDERED: ENOXAPARIN SOD 80 MG/0.8ML SYRINGE SC ONE (18:00)
[2019-02-22] MEDS ORDERED: SODIUM CHLORIDE 0.9% 2,000 ML IV ONE (00:15)
[2019-02-22] MEDS ORDERED: MORPHINE SULF INJ 2 MG/ML SYRINGE 1ML IV PRN (00:15)
[2019-02-22] MEDS ORDERED: NITROGLYCERIN 0.4 MG SL TAB SL PRN (00:15)
[2019-02-22 02:16] LABS: Urine Bacteria FEW /hpf (None Seen); Urine Blood Negative /uL (Negative); Urine Mucus FEW (None Seen); Urine Specific Gravity 1.021 (1.001-1.035); Urine WBC 2 /hpf (0 - 3)
--- NOTE | 2019-02-22 09:23 | NUR ---
Telemetry admit from [facility] admitted to Telemetry unit after SBAR received. Patient oriented to BRYANT delgado RN, unit, room, bed, and unit policies regarding patient care and visiting hours. Patient now on continuous telemetry monitoring, tele box # 11 and telemetry reading on arrival to unit is sinus rhythm in 80's. Patient placed on weighed by bedscale and encouraged to call if they need something. All questions and concerns addressed, patient verbalized understanding.
[2019-02-22 10:00] VITALS: BP 102/64
[2019-02-22] MEDS ORDERED: PANTOPRAZOLE 40 MG/10 ML VIAL INJ IV ONE (10:00)
[2019-02-22 12:00] VITALS: BP 95/65
--- NOTE | 2019-02-22 14:31 | NUR ---
AFIB WITH RVR PAGED DR. Jeanette DONNELLY REGARDING HEART RATE IN THE 130's to 150's. PERFORMED EKG ON PATIENT TO CONFIRM THE PATIENT IS HAVING EPISODES OF AFIB. THE EKG READS AFIB WITH RVR. WILL WAIT FOR DR. DONNELLY TO RETURN PAGE AND FOR ORDERS.
--- NOTE | 2019-02-22 14:36 | NUR ---
MONISHA ORO OF EKG READING.
[2019-02-22 17:00] VITALS: BP 96/56
[2019-02-22] MEDS ORDERED: DEXTROSE (50%) 50ML SYRG IV PRN (19:15)
[2019-02-22] MEDS ORDERED: AMIODARONE HCL 200 MG TAB PO SCH (19:15)
[2019-02-22] MEDS ORDERED: metFORMIN HYDROCHLORIDE 500 MG TAB PO SCH (19:15)
--- NOTE | 2019-02-22 19:30 | NUR ---
Opening Shift Note: A&Ox4, resting in bed. Room air, pain level 4/10 in left chest area, and ambulates at baseline with a walker; currently SBA. Bed locked in lowest position, side rails up x2, and call light within reach. IV 20 g in right hand IID inserted on 02/22/19. Skin: s/p CABG; midline incision scabbed/DAIRY FARMWORKER; midline abdominal incision x3 XOCHITL; right ankle scab XOCHITL. at bedside. Per Dr. Landeros, patient is to be discharged to [facility] when HR is under 110. POC discussed and questions answered. Will continue to round prn.
[2019-02-22] MEDS: AMIODARONE HCL 200 MG TAB PO SCH (19:42)
--- NOTE | 2019-02-22 21:15 | NUR ---
Low Blood Pressure: Current BP 95/55 and HR still in the 120s/130s. Metoprolol held and page sent to Dr. Elsy Landeros for possible new orders/discharge update.
[2019-02-22] MEDS: APIXABAN 5 MG TAB PO SCH (21:34)
[2019-02-22] MEDS: GABAPENTIN 100 MG CAP PO SCH (21:34)
[2019-02-22] MEDS: LISINOPRIL 10 MG TAB PO SCH (21:34)
[2019-02-22] MEDS: InsuLIN REG 1unit/0.01ml Soln (100units/ml) SC SCH (21:35)
[2019-02-22] MEDS: ACCU-CHEK COMFORT CURVE STRIP VI SCH (21:35)
[2019-02-22] MEDS ORDERED: ATORVASTATIN 20 MG TAB PO SCH (22:00)
[2019-02-22 22:28] VITALS: BP 95/55
--- NOTE | 2019-02-22 22:30 | NUR ---
Page sent for possible discharge instruction update: Dr. Elsy Landeros; patient did convert to NSR in 80s/90s.
[2019-02-22] MEDS: METOPROLOL SUCCINATE XL 50 MG TAB PO SCH (23:00)
--- NOTE | 2019-02-22 23:10 | NUR ---
Page return: Current BP 96/57. Hold metroprolol per Dr. Landeros. Hr 88. Patient is ok to be discharged to [facility] per Dr. Elsy Landeros. New telephone order to put in discharge instructions that metoprolol is to be held if SBP is less than 100.
[2019-02-22 23:35] VITALS: BP 96/57
[2019-02-23 05:39] VITALS: BP 112/63
[2019-02-23] MEDS: ACCU-CHEK COMFORT CURVE STRIP VI SCH ×3 (06:57→17:19)
[2019-02-23] MEDS: metFORMIN HYDROCHLORIDE 500 MG TAB PO SCH ×2 (06:57→18:29)
[2019-02-23] MEDS: InsuLIN REG 1unit/0.01ml Soln (100units/ml) SC SCH ×3 (06:57→17:19)
[2019-02-23] MEDS: AMIODARONE HCL 200 MG TAB PO SCH ×2 (06:57→18:29)
[2019-02-23] MEDS: GABAPENTIN 100 MG CAP PO SCH ×2 (06:57→14:08)
[2019-02-23 08:00] VITALS: BP 113/66
--- NOTE | 2019-02-23 08:08 | NUR ---
MD ESTEVES PAGED FOR PATIENT TO BE SEEN PRIOR TO DISCHARGE
--- NOTE | 2019-02-23 08:22 | NUR ---
MD ESTEVES CALLED BACK STATING HE WILL COME TO SEE PATIENT TODAY. PATIENT AWARE
--- NOTE | 2019-02-23 09:32 | NUR ---
TRIVETTY AT BEDSIDE PATIENT ALERT AND ORIENTED X4
[2019-02-23] MEDS: LISINOPRIL 10 MG TAB PO SCH (09:51)
[2019-02-23] MEDS: APIXABAN 5 MG TAB PO SCH (09:51)
[2019-02-23] MEDS: METOPROLOL SUCCINATE XL 50 MG TAB PO SCH (09:52)
[2019-02-23] MEDS ORDERED: PANTOPRAZOLE 40 MG TAB PO SCH (10:00)
[2019-02-23] MEDS ORDERED: INSULIN LANTUS (GLARGINE) 1 /0.01ml (100units/ml) SC SCH (10:00)
[2019-02-23] MEDS ORDERED: CHOLECALCIFEROL (VITD3) 1,000 UNIT TAB PO SCH (10:00)
[2019-02-23] MEDS ORDERED: MULTIPLE VITAMINS W/ MINERALS TAB PO SCH (10:00)
--- NOTE | 2019-02-23 13:22 | NUR ---
MD ORO PAGED PER [facility] REQUEST TO SEE IF PATIENT IS STILL CLEARED FOR DISCHARGE
[2019-02-23 14:24] VITALS: BP 108/62
--- NOTE | 2019-02-23 15:39 | NUR ---
Discharge planning per consult, patient has orders to dc to SNF. Referral was sent to [facility] in [place], [place] [phone]. Placed a follow up call, spoke to Dannielle and was advised that this patient was accepted to room [address] Y[address] Carpenter. Transportation was arranged with [facility] [phone], placed a follow up call, spoke with Ran to confirm fish bait picker. Obtained auth from [facility]. SNF [id number]; Transportation [id number]. Nurse Delgado was advised of dc plan. Addendum: 02/23/19 at 1542 by DEYSI BYRD Amended: Links added.
--- NOTE | 2019-02-23 15:50 | NUR ---
MD ORO PAGED X3. AWAITING RESPONSE
--- NOTE | 2019-02-23 17:10 | NUR ---
assessment Patient is a 68 year old male who is alert and oriented. Patients cognitive abilities are intact. Prior to admission patient lived home with his Mya and functioned with her assistance since his CABG 02/02/19. Patient has a rollator for home use. Patient will need SNF on discharge. Patients PCP is Dr Velasquez. Patient has an order for SNF. Patient agrees to SNF. I informed patient he has a right to speak to a social service liaison regarding all care. I informed patient he has a right to participate in any and all discharge planning. Patient has a POA and advanced directive. Patient verbalized understanding and agreed to discharge plan to SNF. Addendum: 02/23/19 at 1711 by Melody LAYTON Amended: Links added.
[2019-02-23 17:31] VITALS: BP 89/48
--- NOTE | 2019-02-23 18:39 | NUR ---
SPOKE TO MD AGUIRRE PATIENT CLEARED FOR DISCHARGE
--- NOTE | 2019-02-23 19:00 | NUR ---
OPENING NOTE Received report from day shift RN. Patient is A&O X's 4 with no s/s of distress and patient reports no pain. Educated patient on POC and that he will be transferred tonight to facility. Patient is aware of that and agrees to plan. Educated patient to use call light when in need of any assistance. Bed is in lowest/locked position with side rails up X's 2 and call light is within reach of patient. Will continue care.
--- NOTE | 2019-02-23 21:00 | NUR ---
VITAL SIGNS BEFORE TRANSFER Temp 98.1 HR 77 RR 16 O2 98% On room air BP 118/69 generalized pain 06/13. Patient reports no need for pain medication, that he is comfortable. wt 64.1 kg
--- NOTE | 2019-02-23 21:18 | NUR ---
PATIENT TRANSFERRED Patient picked up by transport. Patient is A&O X's 4 with no s/s of distress and does not complain of any pain. Patient transferred with all personal belongings. 20G IV to right hand was removed, catheter was fully intact and no trauma to site was noted. Applied gauze over to area. Tele box 11 was removed and sent back to tech room. Called patient's , with no answer. Left message for Verito to call me back so i can inform her that the patient was transferred.
--- NOTE | 2019-02-23 21:29 | NUR ---
RECEIVED CALL BACK FROM FAMILY PATIENT'S , MAURICE CALLED BACK. PASSWORD WAS OBTAINED. SHE WAS NOTIFIED THAT PATIENT LEFT TO SNF. ALL QUESTIONS WERE ANSWERED AT THIS TIME.
== END 2019-02-23 21:18 | DRG 311 ==
LOC: EDBD 13:25 → EDUNIT# 13:25 → ER 13:30 → TELE 13:31 → TELE-EAST 02-22 09:13
PROVIDERS: ADMIT Internal Medicine; ATTEND Internal Medicine
DX: I24.9 Acute ischemic heart disease, unspecified (principal); E44.0 Moderate protein-calorie malnutrition; J98.11 Atelectasis; I48.0 Paroxysmal atrial fibrillation; E11.22 Type 2 diabetes mellitus with diabetic chronic kidney disease; N18.2 Chronic kidney disease, stage 2 (mild); I12.9 Hypertensive chronic kidney disease with stage 1 through stage 4 chronic kidney disease, or unspecified chronic kidney disease; D64.9 Anemia, unspecified; N40.0 Benign prostatic hyperplasia without lower urinary tract symptoms; K80.20 Calculus of gallbladder without cholecystitis without obstruction; I25.10 Atherosclerotic heart disease of native coronary artery without angina pectoris; E78.5 Hyperlipidemia, unspecified; Z95.1 Presence of aortocoronary bypass graft; Z79.01 Long term (current) use of anticoagulants; Z88.1 Allergy status to other antibiotic agents; Z88.8 Allergy status to other drugs, medicaments and biological substances; Z98.41 Cataract extraction status, right eye; Z83.3 Family history of diabetes mellitus; Z80.9 Family history of malignant neoplasm, unspecified; Z82.49 Family history of ischemic heart disease and other diseases of the circulatory system; Z87.891 Personal history of nicotine dependence; Z79.899 Other long term (current) drug therapy; Z68.24 Body mass index [BMI] 24.0-24.9, adult
CPT/HCPCS: 36415; 70450; 71045; 71250; 74176; 80053; 81001; 82962; 83735; 83880; 84484; 85025; 87040; 87804; 93005; 99291; G0378; J1815; J2405

== ENCOUNTER 2019-06-05 04:57 | Inpatient (IN) | payer OTHER ==
[~2019-06-05] VITALS: Ht 152.4 cm; Wt 62.1 kg
[2019-06-05] MEDS ORDERED: cloNIDine HCL 0.1 MG TAB PO ONE (05:15)
[2019-06-05] MEDS ORDERED: cloNIDine HCL 0.1 MG TAB ONE (05:16)
[2019-06-05] MEDS ORDERED: SODIUM CHLORIDE 0.9% 1,000 ML IV ONE (10:30)
[2019-06-05 10:33] LABS: Basophils # (auto) 0 uL; Eosinophils # (auto) 0 uL; Eosinophils % (auto) 0.2 % (0.0-7.0); Hemoglobin 12.8 g/dL (13.5-17.5); Monocytes # (auto) 0.4 uL
[2019-06-05 10:35] LABS: Basophils % (auto) 0.6 % (0.0-2.0); Hematocrit 40.7 % (41.0-53.0); Lymphocytes % (auto) 14.7 % (10.0-50.0); Mean Corpuscular Hemoglobin 26.2 pg (28.0-32.0); Mean Corpuscular Hgb Conc. 31.4 g/dL (32.0-36.0); Mean Corpuscular Volume 83.5 fL (80.0-100.0); Monocytes % (auto) 6.1 % (0.0-12.0); Neutrophils # (auto) 5.1 uL; Neutrophils % (auto) 78.4 % (37.0-80.0); Nucleated Red Blood Cells % 0.1 %; Platelet Count (auto) 271 10^3/uL (140-450); Red Blood Cells 4.87 10^6/uL (4.5-5.90); Red Cell Distribution Width 15.6 % (11.8-14.3); White Blood Cell 6.5 10^3/uL (4.4-10.8)
[2019-06-05 10:55] LABS: Potassium 4.6 mmol/L (3.5-5.1)
[2019-06-05 11:06] LABS: Albumin 3.7 g/dL (3.4-5.0); BUN/Creatinine Ratio 10.1; Bilirubin, Total 0.4 mg/dL (0.2-1.0); Calcium 9.2 mg/dL (8.5-10.1); Total Protein 7.5 g/dL (6.4-8.2)
[2019-06-05] MEDS ORDERED: EMPA1TAB PO ×2 (13:12→21:59)
[2019-06-05 17:03] LABS: Urine Bacteria NONE SEEN /hpf (None Seen); Urine Blood TRACE /uL (Negative); Urine Specific Gravity 1.014 (1.001-1.035); Urine WBC 1773 /hpf (0 - 3); Urine WBC Clumps PRESENT /hpf (None Seen)
[2019-06-05] MEDS ORDERED: TEMAZEPAM 15 MG CAP PO PRN (18:30)
[2019-06-05] MEDS ORDERED: cefTRIAXone 1GM/50ML D5W 50 ML IV ONE (18:30)
[2019-06-05] MEDS ORDERED: LACTULOSE 20Gm/30ML SOLN PO PRN (18:30)
[2019-06-05] MEDS ORDERED: NITROGLYCERIN 0.4 MG SL TAB SL PRN (18:30)
[2019-06-05] MEDS ORDERED: traMADol HCL 50 MG TAB PO PRN (18:30)
[2019-06-05] MEDS ORDERED: ACETAMINOPHEN 500 MG TAB PO PRN (18:30)
[2019-06-05] MEDS ORDERED: PROMETHAZINE HCL 25 MG/ML 1ML IV PRN (18:30)
[2019-06-05] MEDS ORDERED: DEXTROSE (50%) 50ML SYRG IV PRN (18:30)
[2019-06-05] MEDS ORDERED: MORPHINE SULF INJ 2 MG/ML SYRINGE 1ML IV PRN (18:30)
[2019-06-05] MEDS ORDERED: CLINDAMYCIN 300MG IV 50 ML IV ONE (19:15)
--- NOTE | 2019-06-05 19:38 | NUR ---
Telemetry admit from [facility] admitted to Telemetry unit after SBAR received. Patient oriented to Sandra delgado RN, unit, room, bed, and unit policies regarding patient care and visiting hours. Patient now on continuous telemetry monitoring, tele box # 75 and telemetry reading on arrival to unit is SR 65. Patient placed on bedside oxygen, weighed by bedscale and encouraged to call if they need something. All questions and concerns addressed, patient verbalized understanding.Came per wheelchair awake alert oriented x 4, placed in the bed comfortably, vital signs checked.
[2019-06-05 20:00] VITALS: BP 156/89
--- NOTE | 2019-06-05 20:25 | NUR ---
Picture of the lower leg (right foot) taken, dressing done with wound cleanser, dried with gauzed and covered with band aid, Swab done for culture and gram stain and sent to lab.
[2019-06-05] MEDS: ATORVASTATIN 20 MG TAB PO SCH (21:18)
[2019-06-05] MEDS: SODIUM CHLOR 0.9% PF (SALINE LOCK) 10ML VIAL/SYR IV SCH (21:19)
[2019-06-05] MEDS: CARVEDILOL 3.125 MG TAB PO SCH (21:19)
[2019-06-05] MEDS: ACCU-CHEK COMFORT CURVE STRIP VI SCH (21:38)
[2019-06-05] MEDS: InsuLIN REG 1unit/0.01ml Soln (100units/ml) SC SCH (21:38)
[2019-06-05] MEDS ORDERED: OMEP20TA PO (21:59)
[2019-06-05 22:00] VITALS: BP 156/89
[2019-06-05] MEDS ORDERED: FAMOTIDINE 20 MG TAB PO SCH (22:00)
[2019-06-06] MEDS: CLINDAMYCIN 300MG IV 50 ML IV SCH ×3 (02:34→19:59)
--- NOTE | 2019-06-06 05:00 | NUR ---
Dr. Rashmi forde for med. for shortness of breath for anxiousness and unable to sleep, at 0530 Md. responded with order of Ativan 1mg. p.o. x one.
[2019-06-06 05:20] VITALS: BP 147/84
[2019-06-06] MEDS ORDERED: LORazepam 0.5 MG TAB PO ONE (05:30)
[2019-06-06] MEDS: SODIUM CHLOR 0.9% PF (SALINE LOCK) 10ML VIAL/SYR IV SCH ×3 (05:48→21:47)
[2019-06-06 06:09] LABS: Potassium 3.9 mmol/L (3.5-5.1)
[2019-06-06 06:18] LABS: Albumin 3.5 g/dL (3.4-5.0); BUN/Creatinine Ratio 10.2; Bilirubin, Total 0.6 mg/dL (0.2-1.0); Calcium 8.8 mg/dL (8.5-10.1); Total Protein 7.5 g/dL (6.4-8.2)
[2019-06-06] MEDS: InsuLIN REG 1unit/0.01ml Soln (100units/ml) SC SCH ×4 (06:30→21:59)
[2019-06-06] MEDS: ACCU-CHEK COMFORT CURVE STRIP VI SCH ×4 (06:30→21:59)
--- NOTE | 2019-06-06 07:52 | NUR ---
Report given to Hallie Dasilva, patient is resting no distress.
[2019-06-06 09:00] VITALS: BP 123/85
[2019-06-06] MEDS ORDERED: cefTRIAXone 1GM/50ML D5W 50 ML IV SCH (09:00)
[2019-06-06] MEDS: CARVEDILOL 3.125 MG TAB PO SCH ×2 (09:57→22:00)
[2019-06-06] MEDS ORDERED: ENALAPRIL MALEATE 2.5 MG TAB PO SCH (10:00)
[2019-06-06] MEDS ORDERED: POTASSIUM CHL 20 Meq TABLET PO SCH (10:00)
[2019-06-06] MEDS ORDERED: NITROGLYCERIN 0.2MG/HR TOPICAL PATCH TD SCH (10:00)
[2019-06-06] MEDS ORDERED: FUROSEMIDE 40 MG/4 ML VIAL IV SCH (10:00)
--- NOTE | 2019-06-06 12:45 | NUR ---
WOUND CARE NOTE: IN TO SEE PATIENT AT THIS TIME PER WOUND CARE CONSULT REQUEST. PATIENT NOTED UPON ADMIT TO HAVE WOUND TO RIGHT ANTERIOR ANKLE. WOUND PHOTO TAKEN AT THAT TIME FOR REFERENCE BY BEDSIDE NURSE. PATIENT ADMITTED TO [facility] WITH DIAGNOSIS OF HEART FAILURE, UTI, HEMATURIA. PATIENT HAS CURRENT SARMAD SCORE OF 20. HE IS FULLY AMBULATORY, CAN SELF TURN/REPOSITION SELF. SKIN/WOUND CARE PLAN HAS BEEN IMPLEMENTED. PATIENT STATES THAT HE HAD A CABG AT THIS FACILITY AT LEAST 2 MONTHS AGO. ALL OF HIS SURGICAL INCISIONS HAVE HEALED CLOSED, EXCEPT HIS DONOR GRAFT SITE AT THE RIGHT ANTERIOR ANKLE. THERE IS A NECROTIC 1 X 1 CM WOUND THAT IS FULL THICKNESS, COVERED IN SOFT YELLOW/BROWN SLOUGH. PERIWOUND IS PINK, PALE RED. SCANT SEROUS DRAINAGE NOTED. APPLIED THERAHONEY, OPTIFOAM GENTLE DRESSING TO WOUND. PATIENT ALSO NOTED TO HAVE DRY SKIN TO BILATERAL FEET. NO OTHER SKIN INTEGRITY ISSUES NOTED. RECOMMEND: EOD/PRN DRESSING CHANGE TO WOUND ON RIGHT ANKLE, BID/PRN APPLICATION HYDRAGUARD CREAM TO DRY SKIN OF BILATERAL FEET, DIETARY CONSULT, SKIN/WOUND CARE PLAN, CONTINUED MONITORING BY WOUND CARE TEAM. Addendum: 06/06/19 at 1844 by Sarah Mcnamara RN Amended: Links added.
[2019-06-06 13:00] VITALS: BP 101/55
[2019-06-06] MEDS: FUROSEMIDE 40 MG/4 ML VIAL IV SCH ×2 (14:15→22:00)
[2019-06-06] MEDS: POTASSIUM CHL 20 Meq TABLET PO SCH ×2 (14:15→22:00)
[2019-06-06 17:00] VITALS: BP 105/54
--- NOTE | 2019-06-06 17:26 | NUR ---
PT REQUESTED THAT P.T. EVALUATION BE DONE TOMORROW.
[2019-06-06] MEDS: FINASTERIDE 5 MG TAB PO SCH (18:06)
[2019-06-06] MEDS: LEVALBUTEROL HCL 1.25 MG/3 ML NEB NEB SCH (19:01)
[2019-06-06] MEDS: IPRATROPIUM BROM 0.5 MG/2.5ML INH SOL NEB SCH (19:01)
--- NOTE | 2019-06-06 19:20 | NUR ---
Opening Shift Note Assumed care of patient, awake and alertx4. No S/S of distress/SOB or pain reported at this time. Instructed on POC and to call for assist PRN, call light within reach, will continue to monitor for changes Q1hr and PRN.
[2019-06-06 20:00] VITALS: BP 93/53
[2019-06-06] MEDS: ATORVASTATIN 20 MG TAB PO SCH (21:47)
[2019-06-06] MEDS: FAMOTIDINE 20 MG TAB PO SCH (21:48)
[2019-06-06 22:00] VITALS: BP 93/53
--- NOTE | 2019-06-06 22:00 | NUR ---
PT REFUSED SCHEDULED MEDICATIONS LASIX AND POTASSIUM WERE REFUSED BY PATIENT AND STATES " THE DR TOOK THOSE MEDICATIONS AWAY, I DONT TAKE THOSE ", EDUCATED ON MEDICATION REGIMENT, PT CONT TO REFUSE, CONT CARE
[2019-06-07] VITALS (7 sets, daily range): BP systolic 93–112; BP diastolic 53–71
[2019-06-07] MEDS: LEVALBUTEROL HCL 1.25 MG/3 ML NEB NEB SCH ×4 (00:34→19:14)
[2019-06-07] MEDS: CLINDAMYCIN 300MG IV 50 ML IV SCH ×3 (03:22→18:28)
[2019-06-07] MEDS: IPRATROPIUM BROM 0.5 MG/2.5ML INH SOL NEB SCH ×3 (05:38→19:15)
[2019-06-07] MEDS: SODIUM CHLOR 0.9% PF (SALINE LOCK) 10ML VIAL/SYR IV SCH ×3 (05:40→22:00)
[2019-06-07] MEDS: ACCU-CHEK COMFORT CURVE STRIP VI SCH ×4 (05:48→22:24)
[2019-06-07] MEDS: InsuLIN REG 1unit/0.01ml Soln (100units/ml) SC SCH ×4 (05:48→22:24)
[2019-06-07 06:09] LABS: Eosinophils # (auto) 0 10 ^3/uL (0-0.8); Lymphocytes # (auto) 1.2 10 ^3/uL (0.4-5.4); Monocytes # (auto) 0.7 10 ^3/uL (0-1.3)
[2019-06-07 06:10] LABS: Basophils # (auto) 0 10 ^3/uL (0-0.2); Basophils % (auto) 0.6 % (0.0-2.0); Eosinophils % (auto) 0.5 % (0.0-7.0); Hematocrit 43.2 % (41.0-53.0); Hemoglobin 13.9 g/dL (13.5-17.5); Lymphocytes % (auto) 18.3 % (10.0-50.0); Mean Corpuscular Hemoglobin 26.9 pg (28.0-32.0); Mean Corpuscular Hgb Conc. 32.2 g/dL (32.0-36.0); Mean Corpuscular Volume 83.7 fL (80.0-100.0); Monocytes % (auto) 10.8 % (0.0-12.0); Neutrophils # (auto) 4.4 10 ^3/uL (1.6-8.6); Neutrophils % (auto) 69.8 % (37.0-80.0); Nucleated Red Blood Cells % 0.1 %; Platelet Count (auto) 260 10^3/uL (140-450); Red Blood Cells 5.15 10^6/uL (4.5-5.90); Red Cell Distribution Width 15.9 % (11.8-14.3); White Blood Cell 6.3 10^3/uL (4.4-10.8)
[2019-06-07 06:23] LABS: INR 1.08 (0.9-1.15)
[2019-06-07 06:26] LABS: BUN/Creatinine Ratio 14.3; Potassium 4.4 mmol/L (3.5-5.1)
[2019-06-07] MEDS: POTASSIUM CHL 20 Meq TABLET PO SCH (10:01)
[2019-06-07] MEDS: FUROSEMIDE 40 MG/4 ML VIAL IV SCH (10:03)
[2019-06-07] MEDS: CARVEDILOL 3.125 MG TAB PO SCH ×2 (10:03→22:21)
--- NOTE | 2019-06-07 13:01 | NUR ---
DR. DELGADILLO IN TO SEE PT. PLAN OF CARE DISCUSSED. IMAGING STUDIES ORDERED.
--- NOTE | 2019-06-07 14:23 | NUR ---
Nutrition Assessment Notes Please refer to link for full assessment notes. Est energy needs: 4499-8516 kcals (30-35 kcal/kgBW) d/t slow healing wounds Est protein needs: 75-93 gms/day (1.2-1.5 gm/kgBW) d/t slow healing wounds Will continue to monitor and reassess prn. Addendum: 06/07/19 at [address] Amended: Links added.
[2019-06-07] MEDS: FINASTERIDE 5 MG TAB PO SCH (17:52)
--- NOTE | 2019-06-07 19:10 | NUR ---
Opening Shift Note Assumed care of patient, awake and alertx4. No S/S of distress/SOB or pain reported at this time. Instructed on POC and to call for assist PRN, call light within reach, will continue to monitor for changes Q1hr and PRN. currently family at bedside dressing to right ankle clean dry and intact Signed: 06/08/19 at 0243 by DILLON MCCORMACK SN <Co-Signature Required> Co-Signed: 06/08/19 at 0243 by Evelyn Pierce RN
[2019-06-07] MEDS: ATORVASTATIN 20 MG TAB PO SCH (22:22)
[2019-06-07] MEDS: FAMOTIDINE 20 MG TAB PO SCH (22:22)
[2019-06-08] VITALS (10 sets, daily range): BP systolic 107–140; BP diastolic 59–85
[2019-06-08] MEDS: LEVALBUTEROL HCL 1.25 MG/3 ML NEB NEB SCH ×3 (00:01→11:18)
[2019-06-08] MEDS: CLINDAMYCIN 300MG IV 50 ML IV SCH ×2 (03:48→10:57)
--- NOTE | 2019-06-08 06:14 | NUR ---
ARRHYTHMIA/ PAGED ELEVATED HR NOTED ON TELE MONITOR, HR 120'S-130'S, PT ASSESSED, PT ASYMPTOMATIC, REPORTS JUST HAD RETURNED TO BED FROM VOIDING INTO URINAL, NO CURRENT C/O SOB, CP OR ANY OTHER DISCOMFORT, VS 98/62, P 76, 98%, RR16, MANUAL RADIAL PULSE COUNT 105, EKG IMPLEMENTED RESULTS SHOWED ATRIAL FLUTTER WITH PREDOMINANT 2:1 AV BLOCK @ RATE 129, SENIOR LICENSING MANAGER HOSPITALIST AND DR TOBIN PAGED, CALL LIGHT WITHIN REACH, INSTRUCTED TO CALL FOR ANY NEW SUDDEN DISTRESS OR IF ANY SYMPTOMS OCCURS, PT VERBALIZED UNDERSTANDING, CONT CARE
--- NOTE | 2019-06-08 06:23 | NUR ---
SPOKE WITH MD CALLED DR BALL EXCHANGE, CURRENT DR TITUS COVERING FOR DR QUINN MD UPDATED REGARDING REASON FOR CALL, MD AWARE PATIENT HEART RHYTHM CHANGED FROM NORMAL SINUS RHYTHM TO ATRIAL FLUTTER WITH PREDOMINANT 2:1 AV BLOCK, ALSO INFORMED THAT DR TOBIN WAS DHEERAJDMD STATES " PT SOUNDS LIKE HE IS NO CURRENT DISTRESS, AND I AM SURE DR TOBIN WILL CALL BACK", NO FURTHER ORDERS WERE RECEIVED, WILL CONT AND CLOSELY MONITOR PT
[2019-06-08] MEDS: ACCU-CHEK COMFORT CURVE STRIP VI SCH ×2 (06:29→11:30)
[2019-06-08] MEDS: SODIUM CHLOR 0.9% PF (SALINE LOCK) 10ML VIAL/SYR IV SCH ×2 (06:29→15:51)
[2019-06-08] MEDS: IPRATROPIUM BROM 0.5 MG/2.5ML INH SOL NEB SCH ×2 (06:44→11:17)
[2019-06-08] MEDS: InsuLIN REG 1unit/0.01ml Soln (100units/ml) SC SCH ×2 (06:49→12:07)
[2019-06-08 07:07] LABS: Potassium 4.2 mmol/L (3.5-5.1)
[2019-06-08 07:12] LABS: BUN/Creatinine Ratio 13.4; Calcium 8.9 mg/dL (8.5-10.1)
[2019-06-08] MEDS: CARVEDILOL 3.125 MG TAB PO SCH (09:12)
[2019-06-08] MEDS ORDERED: DIGOXIN (250MCG/ML) 2 ML AMPULE IV ONE (10:00)
--- NOTE | 2019-06-08 10:00 | NUR ---
Received call back from Dr. Dykes, doctor informed that pt converted to A. fib from 120 to 140, v/s stable, no chest pain, and no sob, orders received to increased the coreg to 6.25 mg BID, and to give a one time dose of Digoxin 0.25 mg IV x 1.
[2019-06-08] MEDS ORDERED: AMIO200T33 PO (11:51)
[2019-06-08] MEDS ORDERED: APIX5TAB PO (11:51)
[2019-06-08] MEDS ORDERED: AMOX500T86 PO (11:52)
[2019-06-08] MEDS ORDERED: FURO1TAB31 PO (11:54)
[2019-06-08] MEDS ORDERED: AMIODARONE HCL 150 MG in D5W 5% 100 ML IV ONE (12:00)
--- NOTE | 2019-06-08 12:05 | NUR ---
Dr. Dykes at bed side to see pt, doctor discussed the plan of care with pt, doctor ordered a one time order of amiodarone, charge nurse informed, and for pt to be d/c after the amiodarone dose.
--- NOTE | 2019-06-08 16:50 | NUR ---
D/C planning Per SS consult for wound care. Faxed order to [facility]. Per Cande with [facility] ph:( [phone]) patient has been accepted and service to start within 24-48hrs upon d/c day. Patient does not have transportation benefits. Advised RN Marcelle to provide patient with a Taxi Voucher. AUGUSTIN James with [facility] was informed of accepting agency and will provide authorization to [facility].
--- NOTE | 2019-06-08 17:15 | NUR ---
Patient taken to vehicle via wheelchair with all personal belongings, accompanied by staff and family member. No distress noted at time of departure.
--- NOTE | 2019-06-08 17:45 | NUR ---
Discharge instructions given as ordered. Encourage to follow up with PMD as instructed. All questions and concerns addressed. Patient verbalized understanding. Medication reconciliation form completed and copy given to patient. No home medications held in Pharmacy, and no needed vaccines to be given. IV removed with catheter intact, pressure dressing applied. Telemetry unit returned to ICU. Called taxi cap to machine operator hop picker pt and transport to home, at bed side. Rt ankle dressing change and pictures taken. Addendum: 06/08/19 at 1827 by Marcelle Palmer RN At 1645 Discharge instructions given as ordered. Encourage to follow up with PMD as instructed. All questions and concerns addressed. Patient verbalized understanding. Medication reconciliation form completed and copy given to patient. No home medications held in Pharmacy, and no needed vaccines to be given. IV removed with catheter intact, pressure dressing applied. Telemetry unit returned to ICU. Called taxi cap to machine operator hop picker pt and transport to home, at bed side. Rt ankle dressing change and pictures taken.
[2019-06-08] MEDS ORDERED: AMOXICILLIN/CLAVULAN 500 MG TAB PO SCH (22:00)
[2019-06-08] MEDS ORDERED: CARVEDILOL 3.125 MG TAB PO SCH (22:00)
== END 2019-06-08 17:10 | disposition home health service (06) | DRG 291 ==
LOC: EDBD 04:57 → ER 04:57 → TELE 04:58 → TELE-WESTW 19:38
PROVIDERS: ADMIT Internal Medicine; ATTEND Hospitalist
DX: I13.0 Hypertensive heart and chronic kidney disease with heart failure and stage 1 through stage 4 chronic kidney disease, or unspecified chronic kidney disease (principal); J96.21 Acute and chronic respiratory failure with hypoxia; I50.33 Acute on chronic diastolic (congestive) heart failure; N39.0 Urinary tract infection, site not specified; I48.20 Chronic atrial fibrillation, unspecified; N17.9 Acute kidney failure, unspecified; M48.54XA Collapsed vertebra, not elsewhere classified, thoracic region, initial encounter for fracture; L97.318 Non-pressure chronic ulcer of right ankle with other specified severity; M86.8X7 Other osteomyelitis, ankle and foot; E11.9 Type 2 diabetes mellitus without complications; I48.0 Paroxysmal atrial fibrillation; E03.9 Hypothyroidism, unspecified; N40.0 Benign prostatic hyperplasia without lower urinary tract symptoms; I11.0 Hypertensive heart disease with heart failure; E11.22 Type 2 diabetes mellitus with diabetic chronic kidney disease; E11.65 Type 2 diabetes mellitus with hyperglycemia; K21.9 Gastro-esophageal reflux disease without esophagitis; M19.90 Unspecified osteoarthritis, unspecified site; E11.69 Type 2 diabetes mellitus with other specified complication; E78.5 Hyperlipidemia, unspecified; N18.3 Chronic kidney disease, stage 3 (moderate); R31.0 Gross hematuria; I25.10 Atherosclerotic heart disease of native coronary artery without angina pectoris; Z95.1 Presence of aortocoronary bypass graft; Z79.01 Long term (current) use of anticoagulants; Z80.9 Family history of malignant neoplasm, unspecified; Z82.49 Family history of ischemic heart disease and other diseases of the circulatory system; Z88.8 Allergy status to other drugs, medicaments and biological substances; Z83.3 Family history of diabetes mellitus; Z88.1 Allergy status to other antibiotic agents; Z79.899 Other long term (current) drug therapy
CPT/HCPCS: 36415; 71046; 73630; 73721; 80048; 80053; 80061; 81001; 82550; 82962; 83036; 83735; 83880; 84443; 84484; 85025; 85610; 85730; 87077; 87086; 87186; 87205; 93005; 93926; 94640; 96361; 96365; G0378; J0696; J1815; J3490; J7060